=== PATIENT | male | born 1955 | race Caucasian/White ===

== ENCOUNTER 2018-01-21 14:36 | Inpatient (IN) ==
[2018-01-21] MEDS ORDERED: methylPREDNISolone SOD SUC 125 MG/2 ML VIAL IV STA (15:01)
[2018-01-21 15:45] LABS: Basophils # 0.1 10*3/uL (0.0-0.2); Basophils % 0.5 % (0.0-0.8); Eosinophils # 0.3 10*3/uL (0.0-0.87); Eosinophils % 1.9 % (0.00-10.9); Hemoglobin 15.9 GM/DL (14.0-18.0); Immature Granulocytes % 0.8 %; Immature Granulocytes Absolute 0.11 #; Lymphocytes # 1.6 10*3/uL (1.4-4.0); Lymphocytes % 11.8 % (21.2-54.2); Mean Corpuscular HGB Conc 31.2 GM/DL (32-36); Mean Corpuscular Hemoglobin 27 PG (27-34); Mean Corpuscular Volume 85.9 FL (87-102); Mean Platelet Volume 10.8 FL (9.6-12.0); Monocytes # 0.6 10*3/uL (0.11-0.8); Monocytes % 4.8 % (1.7-12.7); Neutrophils # 10.6 10*3/uL (1.4-7.4); Neutrophils % 80.2 % (38.7-73.9); Platelet Count 202 T/CUMM (130-400); Red Blood Count 5.94 MC/CUMM (3.8-5.5); Red Cell Distribution Width 16.7 % (9.3-17.3); White Blood Count 13.2 T/CUMM (4-12)
[2018-01-21 16:04] LABS: INR 4.1
[2018-01-21 16:06] LABS: PT Patient Result 41.4 SECS; Partial Thromboplastin Time 43.3 SECS (0-40)
[2018-01-21 16:27] LABS: Albumin 2.8 G/DL (3.4-5.0); Bilirubin,Total 1.4 MG/DL (0.2-1.0); Calcium 8.7 MG/DL (8.5-10.1); Potassium 4.8 MMOL/L (3.5-5.1); Total Protein 6.4 G/DL (6.4-8.3)
[2018-01-21] MEDS ORDERED: FUROSEMIDE 40 MG/4 ML VIAL IV STA (16:59)
[2018-01-21] MEDS ORDERED: MELATONIN 3 MG TABLET PO PRN (17:54)
[2018-01-21] MEDS ORDERED: DEXTROSE 50% 25 GM/50 ML VIAL IV PRN (18:55)
[2018-01-21] MEDS ORDERED: ONDANSETRON 4 MG/2 ML VIAL IV PRN (18:55)
[2018-01-21] MEDS ORDERED: ACETAMINOPHEN 325 MG TABLET PO PRN (18:55)
[2018-01-21] MEDS ORDERED: GLUCAGON 1 MG VIAL IM PRN (18:55)
[2018-01-21] MEDS ORDERED: MORPHINE 4 MG/1 ML VIAL IV PRN (18:55)
[2018-01-21 20:57] LABS: Apearance,Urine CLEAR (Clear); Bilirubin,Urine Negative (Negative); Blood, Urine Small mg/dL (Negative); Glucose,Urine (UA) >=500 mg/dL (Negative); Ketones,Urine Negative (Negative); Nitrite,Urine Negative (Negative); Protein,Urine Negative; Squamous Epithelial Cell,Urine Occasional /HPF (0-10); Urine Color Yellow (Yellow); Urine Specific Gravity 1.006 (1.001-1.035); Urine Urobilinogen < 2.0 EU/DL (0.2-1.0); WBC,Urine 2 /HPF (0-6)
[2018-01-21] MEDS ORDERED: COLCHICINE 0.6 MG TABLET PO SCH (21:00)
[2018-01-21] MEDS ORDERED: TORSEMIDE 20 MG TABLET PO SCH (21:00)
[2018-01-21] MEDS ORDERED: POTASSIUM CHLORIDE 20 MEQ TABLET PO SCH (21:00)
[2018-01-21] MEDS ORDERED: ATORVASTATIN 40 MG TABLET PO SCH (21:00)
[2018-01-21] MEDS: TAMSULOSIN 0.4 MG CAPSULE PO SCH (21:49)
[2018-01-21] MEDS: ZINC OXIDE PASTE 113 GM TUBE TOP SCH (21:49)
[2018-01-21] MEDS: predniSONE 20 MG TABLET PO SCH (21:49)
[2018-01-21] MEDS: INSULIN LISPRO PROTAMINE/LISPRO 75/25 100 UNIT/ML SUBCUT SCH (21:50)
[2018-01-21] MEDS: INSULIN LISPRO 100 UNIT/ML SUBCUT SCH (21:57)
[2018-01-22] MEDS: LEVOTHYROXINE 112 MCG TABLET PO SCH (06:20)
[2018-01-22 06:38] LABS: Basophils % 0.1 % (0.0-0.8); Hematocrit 41.6 VOL% (42.0-52.0); Hemoglobin 13.1 GM/DL (14.0-18.0); Immature Granulocytes % 0.9 %; Immature Granulocytes Absolute 0.09 #; Lymphocytes # 1.1 10*3/uL (1.4-4.0); Mean Corpuscular HGB Conc 31.5 GM/DL (32-36); Mean Corpuscular Hemoglobin 27 PG (27-34); Mean Corpuscular Volume 84.7 FL (87-102); Monocytes # 0.2 10*3/uL (0.11-0.8); Monocytes % 1.6 % (1.7-12.7); Neutrophils # 8.9 10*3/uL (1.4-7.4); Neutrophils % 86.4 % (38.7-73.9); Platelet Count 173 T/CUMM (130-400); Red Blood Count 4.91 MC/CUMM (3.8-5.5); White Blood Count 10.3 T/CUMM (4-12)
[2018-01-22 06:45] LABS: INR 2.4
[2018-01-22 06:57] LABS: PT Patient Result 24.8 SECS
[2018-01-22 07:04] LABS: Albumin 2.7 G/DL (3.4-5.0); Bilirubin,Total 1.7 MG/DL (0.2-1.0); Calcium 8.9 MG/DL (8.5-10.1); Osmolality,Calculated 288.2 MOS/KG (273-304); Potassium 4.4 MMOL/L (3.5-5.1); Thyroid Stimulating Hormone 2.63 uIU/ml (0.358-3.74); Total Protein 6.3 G/DL (6.4-8.3)
[2018-01-22] MEDS ORDERED: CITALOPRAM 20 MG TABLET PO SCH (09:00)
[2018-01-22] MEDS ORDERED: SODIUM BICARBONATE 650 MG TABLET PO SCH (09:00)
[2018-01-22] MEDS: FEBUXOSTAT 80 MG TABLET PO SCH (09:03)
[2018-01-22] MEDS: predniSONE 20 MG TABLET PO SCH ×2 (09:03→21:30)
[2018-01-22] MEDS: INSULIN LISPRO 100 UNIT/ML SUBCUT SCH ×4 (09:03→21:30)
[2018-01-22] MEDS: PANTOPRAZOLE 40 MG TABLET PO SCH (09:03)
[2018-01-22] MEDS: TAMSULOSIN 0.4 MG CAPSULE PO SCH ×2 (09:03→21:30)
[2018-01-22] MEDS: ZINC OXIDE PASTE 113 GM TUBE TOP SCH ×2 (09:03→21:56)
[2018-01-22] MEDS: INSULIN LISPRO PROTAMINE/LISPRO 75/25 100 UNIT/ML SUBCUT SCH ×2 (09:03→18:21)
[2018-01-22] MEDS ORDERED: diphenhydrAMINE CAP 50 MG CAPSULE PO PRN (11:19)
[2018-01-22] MEDS ORDERED: diphenhydrAMINE CAP 25 MG CAPSULE PO PRN (11:19)
[2018-01-22] MEDS: CLOTRIMAZOLE 1% CREAM 15 GM TUBE TOP SCH (21:56)
[2018-01-23] MEDS: LEVOTHYROXINE 112 MCG TABLET PO SCH (06:02)
[2018-01-23] MEDS: predniSONE 20 MG TABLET PO SCH ×2 (08:09→21:29)
[2018-01-23] MEDS: PANTOPRAZOLE 40 MG TABLET PO SCH (08:09)
[2018-01-23] MEDS: FEBUXOSTAT 80 MG TABLET PO SCH (08:09)
[2018-01-23] MEDS: TAMSULOSIN 0.4 MG CAPSULE PO SCH ×2 (08:09→21:29)
[2018-01-23] MEDS: INSULIN LISPRO PROTAMINE/LISPRO 75/25 100 UNIT/ML SUBCUT SCH ×2 (08:11→18:13)
[2018-01-23] MEDS: INSULIN LISPRO 100 UNIT/ML SUBCUT SCH ×4 (08:11→21:29)
[2018-01-23] MEDS: ZINC OXIDE PASTE 113 GM TUBE TOP SCH ×2 (10:02→21:29)
[2018-01-23] MEDS: CLOTRIMAZOLE 1% CREAM 15 GM TUBE TOP SCH ×2 (15:08→21:29)
[2018-01-24 06:10] LABS: Basophils % 0.1 % (0.0-0.8); Eosinophils % 0.1 % (0.00-10.9); Hematocrit 38.4 VOL% (42.0-52.0); Hemoglobin 12.5 GM/DL (14.0-18.0); Immature Granulocytes % 1.5 %; Immature Granulocytes Absolute 0.13 #; Lymphocytes # 0.9 10*3/uL (1.4-4.0); Lymphocytes % 10.1 % (21.2-54.2); Mean Corpuscular HGB Conc 32.6 GM/DL (32-36); Mean Corpuscular Hemoglobin 28 PG (27-34); Mean Corpuscular Volume 85.1 FL (87-102); Mean Platelet Volume 11.3 FL (9.6-12.0); Monocytes # 0.3 10*3/uL (0.11-0.8); Monocytes % 3.4 % (1.7-12.7); Neutrophils # 7.6 10*3/uL (1.4-7.4); Neutrophils % 84.8 % (38.7-73.9); Platelet Count 148 T/CUMM (130-400); Red Blood Count 4.51 MC/CUMM (3.8-5.5); White Blood Count 8.9 T/CUMM (4-12)
[2018-01-24 06:16] LABS: INR 1.1
[2018-01-24 06:31] LABS: Calcium 8.6 MG/DL (8.5-10.1); Osmolality,Calculated 293.7 MOS/KG (273-304); Potassium 4.2 MMOL/L (3.5-5.1)
[2018-01-24] MEDS: LEVOTHYROXINE 112 MCG TABLET PO SCH (06:31)
[2018-01-24] MEDS: TAMSULOSIN 0.4 MG CAPSULE PO SCH (08:45)
[2018-01-24] MEDS: FEBUXOSTAT 80 MG TABLET PO SCH (08:45)
[2018-01-24] MEDS: predniSONE 20 MG TABLET PO SCH (08:45)
[2018-01-24] MEDS: INSULIN LISPRO PROTAMINE/LISPRO 75/25 100 UNIT/ML SUBCUT SCH (08:47)
[2018-01-24] MEDS: PANTOPRAZOLE 40 MG TABLET PO SCH (08:47)
[2018-01-24] MEDS: ZINC OXIDE PASTE 113 GM TUBE TOP SCH (08:47)
[2018-01-24] MEDS: INSULIN LISPRO 100 UNIT/ML SUBCUT SCH ×2 (08:50→11:52)
[2018-01-24] MEDS: CLOTRIMAZOLE 1% CREAM 15 GM TUBE TOP SCH (11:44)
[2018-01-24 17:46] VITALS: BP 156/99
== END 2018-01-24 16:30 | disposition home health service (06) | DRG 813 ==
LOC: EDBD → EDUNIT# → N.ED 14:36 → SUATTDRO 16:56 → N.EDINP 16:56 → N.3E 17:59
PROVIDERS: ADMIT Internal Medicine; ATTEND Family Medicine

== ENCOUNTER 2018-02-28 16:48 | Inpatient (IN) ==
[2018-02-28] MEDS ORDERED: ASPIRIN 325 MG TABLET PO STA (17:15)
[2018-02-28] MEDS ORDERED: ALBUTEROL/IPRATROPIUM 3 ML NEB RESP TX STA (17:15)
[2018-02-28] MEDS ORDERED: MORPHINE 4 MG/1 ML VIAL IV STA (17:15)
[2018-02-28] MEDS ORDERED: BUMETANIDE 1 MG/4 ML VIAL IV STA (17:15)
[2018-02-28] MEDS ORDERED: ONDANSETRON 4 MG/2 ML VIAL IV STA (17:15)
[2018-02-28 17:29] LABS: Basophils % 0.3 % (0.0-0.8); Eosinophils # 0.2 10*3/uL (0.0-0.87); Eosinophils % 1.5 % (0.00-10.9); Hematocrit 36.8 VOL% (42.0-52.0); Hemoglobin 11.5 GM/DL (14.0-18.0); Immature Granulocytes % 0.6 %; Immature Granulocytes Absolute 0.08 #; Lymphocytes # 1.3 10*3/uL (1.4-4.0); Lymphocytes % 9.3 % (21.2-54.2); Mean Corpuscular HGB Conc 31.3 GM/DL (32-36); Mean Corpuscular Hemoglobin 27 PG (27-34); Mean Corpuscular Volume 85.2 FL (87-102); Mean Platelet Volume 10.5 FL (9.6-12.0); Monocytes # 0.9 10*3/uL (0.11-0.8); Monocytes % 6.4 % (1.7-12.7); Neutrophils # 11.3 10*3/uL (1.4-7.4); Neutrophils % 81.9 % (38.7-73.9); Platelet Count 176 T/CUMM (130-400); Red Blood Count 4.32 MC/CUMM (3.8-5.5); White Blood Count 13.7 T/CUMM (4-12)
[2018-02-28 17:41] LABS: INR 1.1; PT Patient Result 11.8 SECS
[2018-02-28 17:55] LABS: ABG Base Excess 6.7 MMOL/L (-2.5-2.5); ABG HCO3 30.5 MMOL/L (20-26); ABG Oxygen Saturation 93.9 % (95-100); ABG PCO2 49.6 MM HG (35-48); ABG PH 7.423 (7.35-7.45); ABG PO2 74.3 MM HG (80-95); ABG TCO2 28.8 MMOL/L (23-27)
[2018-02-28 17:57] LABS: Alanine Aminotransferase 16 U/L (16-61); Albumin 1.9 G/DL (3.4-5.0); Alkaline Phosphatase 105 U/L (45-117); Aspartate Amino Transferase 6 U/L (0-37); Blood Urea Nitrogen 18 MG/DL (7-18); Calcium 8.5 MG/DL (8.5-10.1); Glucose 157 MG/DL (74-106); Osmolality,Calculated 283.4 MOS/KG (273-304); Potassium 3.2 MMOL/L (3.5-5.1); Sodium 140 MMOL/L (136-145); Total Protein 5.8 G/DL (6.4-8.3)
[2018-02-28] MEDS ORDERED: PIPERACILLIN/TAZOBACTAM 3,375 MG in SODIUM CHLORIDE 0.9% 100 ML IV STA (18:38)
[2018-02-28] MEDS ORDERED: POTASSIUM CHLORIDE 20 MEQ TABLET PO STA (18:38)
[2018-02-28] MEDS ORDERED: ACETAMINOPHEN 325 MG TABLET PO PRN (19:16)
[2018-02-28] MEDS ORDERED: DEXTROSE 50% 25 GM/50 ML VIAL IV PRN (19:16)
[2018-02-28] MEDS ORDERED: GLUCAGON 1 MG VIAL IM PRN (19:16)
[2018-02-28] MEDS ORDERED: MELATONIN 3 MG TABLET PO PRN (19:18)
[2018-02-28] MEDS: POTASSIUM CHLORIDE 20 MEQ TABLET PO SCH (21:22)
[2018-02-28] MEDS: TAMSULOSIN 0.4 MG CAPSULE PO SCH (21:22)
[2018-02-28] MEDS: PANTOPRAZOLE 40 MG TABLET PO SCH (21:22)
[2018-02-28] MEDS: APIXABAN 2.5 MG TABLET PO SCH (21:22)
[2018-02-28] MEDS: CARVEDILOL 12.5 MG TABLET PO SCH (21:22)
[2018-02-28] MEDS: INSULIN REGULAR 100 UNIT/ML SUBCUT SCH (21:26)
[2018-02-28] MEDS: BUMETANIDE 1 MG/4 ML VIAL IV SCH (22:39)
[2018-02-28] MEDS: ZINC OXIDE PASTE 113 GM TUBE TOP SCH (22:40)
[2018-03-01 03:47] LABS: Basophils % 0.3 % (0.0-0.8); Eosinophils # 0.2 10*3/uL (0.0-0.87); Eosinophils % 1.7 % (0.00-10.9); Hematocrit 35.2 VOL% (42.0-52.0); Hemoglobin 11.2 GM/DL (14.0-18.0); Immature Granulocytes % 0.5 %; Immature Granulocytes Absolute 0.06 #; Lymphocytes # 1.3 10*3/uL (1.4-4.0); Lymphocytes % 10.5 % (21.2-54.2); Mean Corpuscular HGB Conc 31.8 GM/DL (32-36); Mean Corpuscular Hemoglobin 27 PG (27-34); Mean Corpuscular Volume 83.4 FL (87-102); Mean Platelet Volume 10.4 FL (9.6-12.0); Monocytes # 0.9 10*3/uL (0.11-0.8); Neutrophils # 9.7 10*3/uL (1.4-7.4); Platelet Count 172 T/CUMM (130-400); Red Blood Count 4.22 MC/CUMM (3.8-5.5); Red Cell Distribution Width 16.1 % (9.3-17.3); White Blood Count 12.1 T/CUMM (4-12)
[2018-03-01] MEDS: PIPERACILLIN/TAZOBACTAM 3,375 MG in SODIUM CHLORIDE 0.9% 100 ML IV SCH ×3 (04:05→18:02)
[2018-03-01 04:32] LABS: Calcium 8.8 MG/DL (8.5-10.1); Potassium 3.6 MMOL/L (3.5-5.1); Risk Ratio 1.8; Thyroid Stimulating Hormone 3.16 uIU/ml (0.358-3.74); VLDL CHOLESTEROL 11.6 MG/DL
[2018-03-01] MEDS: LEVOTHYROXINE 112 MCG TABLET PO SCH ×2 (06:33→09:37)
[2018-03-01] MEDS: INSULIN REGULAR 100 UNIT/ML SUBCUT SCH ×4 (09:26→20:57)
[2018-03-01] MEDS: SODIUM BICARBONATE 650 MG TABLET PO SCH (09:36)
[2018-03-01] MEDS: PANTOPRAZOLE 40 MG TABLET PO SCH ×2 (09:37→20:57)
[2018-03-01] MEDS: TAMSULOSIN 0.4 MG CAPSULE PO SCH ×2 (09:37→20:57)
[2018-03-01] MEDS: ASPIRIN CHEW 81 MG TABLET PO SCH (09:37)
[2018-03-01] MEDS: CITALOPRAM 20 MG TABLET PO SCH (09:37)
[2018-03-01] MEDS: ATORVASTATIN 40 MG TABLET PO SCH (09:37)
[2018-03-01] MEDS: FEBUXOSTAT 80 MG TABLET PO SCH (09:37)
[2018-03-01] MEDS: CARVEDILOL 12.5 MG TABLET PO SCH ×2 (09:38→16:38)
[2018-03-01] MEDS: APIXABAN 2.5 MG TABLET PO SCH ×2 (09:38→20:57)
[2018-03-01] MEDS: POTASSIUM CHLORIDE 20 MEQ TABLET PO SCH ×2 (09:38→20:57)
[2018-03-01] MEDS: ZINC OXIDE PASTE 113 GM TUBE TOP SCH ×2 (09:42→20:57)
[2018-03-01] MEDS: BUMETANIDE 1 MG/4 ML VIAL IV SCH ×2 (09:42→16:35)
[2018-03-01] MEDS: INSULIN LISPRO PROTAMINE/LISPRO 75/25 100 UNIT/ML SUBCUT SCH (09:54)
[2018-03-01 10:02] LABS: Apearance,Urine CLEAR (Clear); Bilirubin,Urine Negative (Negative); Blood, Urine Negative (Negative); Glucose,Urine (UA) 50 mg/dL (Negative); Ketones,Urine Negative (Negative); Mucus,Urine Occasional /LPF (Occasional); Nitrite,Urine Negative (Negative); Protein,Urine Negative; RBC,Urine 1 /HPF (0-4); Squamous Epithelial Cell,Urine Occasional /HPF (0-10); Urine Color Yellow (Yellow); Urine Specific Gravity 1.012 (1.001-1.035); Urine Urobilinogen < 2.0 EU/DL (0.2-1.0)
[2018-03-01] MEDS: guaiFENesin 200 MG/10 ML UDCUP PO PRN (13:57)
[2018-03-01] MEDS: ONDANSETRON 4 MG/2 ML VIAL IV PRN (23:45)
[2018-03-02] MEDS: PIPERACILLIN/TAZOBACTAM 3,375 MG in SODIUM CHLORIDE 0.9% 100 ML IV SCH ×3 (04:10→18:35)
[2018-03-02 05:55] LABS: Basophils % 0.3 % (0.0-0.8); Eosinophils # 0.1 10*3/uL (0.0-0.87); Eosinophils % 1.1 % (0.00-10.9); Hematocrit 36.2 VOL% (42.0-52.0); Immature Granulocytes % 0.5 %; Immature Granulocytes Absolute 0.06 #; Lymphocytes # 1.1 10*3/uL (1.4-4.0); Lymphocytes % 9.7 % (21.2-54.2); Mean Corpuscular HGB Conc 30.4 GM/DL (32-36); Mean Corpuscular Hemoglobin 26 PG (27-34); Mean Corpuscular Volume 86.4 FL (87-102); Mean Platelet Volume 10.7 FL (9.6-12.0); Monocytes # 0.9 10*3/uL (0.11-0.8); Neutrophils # 9.3 10*3/uL (1.4-7.4); Neutrophils % 80.4 % (38.7-73.9); Platelet Count 168 T/CUMM (130-400); Red Blood Count 4.19 MC/CUMM (3.8-5.5); Red Cell Distribution Width 16.1 % (9.3-17.3); White Blood Count 11.6 T/CUMM (4-12)
[2018-03-02] MEDS: LEVOTHYROXINE 112 MCG TABLET PO SCH (06:11)
[2018-03-02 07:07] LABS: Calcium 8.7 MG/DL (8.5-10.1); Osmolality,Calculated 283.5 MOS/KG (273-304); Potassium 3.8 MMOL/L (3.5-5.1)
[2018-03-02] MEDS: FEBUXOSTAT 80 MG TABLET PO SCH (09:12)
[2018-03-02] MEDS: TAMSULOSIN 0.4 MG CAPSULE PO SCH ×2 (09:12→21:32)
[2018-03-02] MEDS: APIXABAN 2.5 MG TABLET PO SCH ×2 (09:13→21:33)
[2018-03-02] MEDS: CARVEDILOL 12.5 MG TABLET PO SCH ×2 (09:13→16:20)
[2018-03-02] MEDS: ASPIRIN CHEW 81 MG TABLET PO SCH (09:13)
[2018-03-02] MEDS: CITALOPRAM 20 MG TABLET PO SCH (09:14)
[2018-03-02] MEDS: PANTOPRAZOLE 40 MG TABLET PO SCH ×2 (09:14→21:33)
[2018-03-02] MEDS: POTASSIUM CHLORIDE 20 MEQ TABLET PO SCH ×2 (09:14→21:33)
[2018-03-02] MEDS: ATORVASTATIN 40 MG TABLET PO SCH (09:14)
[2018-03-02] MEDS: SODIUM BICARBONATE 650 MG TABLET PO SCH (09:14)
[2018-03-02] MEDS: INSULIN LISPRO PROTAMINE/LISPRO 75/25 100 UNIT/ML SUBCUT SCH (09:15)
[2018-03-02] MEDS: BUMETANIDE 1 MG/4 ML VIAL IV SCH ×2 (09:15→16:29)
[2018-03-02] MEDS: ZINC OXIDE PASTE 113 GM TUBE TOP SCH ×2 (09:18→21:40)
[2018-03-02] MEDS: INSULIN REGULAR 100 UNIT/ML SUBCUT SCH ×4 (09:18→21:30)
[2018-03-02] MEDS: MAGNESIUM HYDROXIDE SUSP 30 ML UDCUP PO PRN (21:35)
[2018-03-03] MEDS: PIPERACILLIN/TAZOBACTAM 3,375 MG in SODIUM CHLORIDE 0.9% 100 ML IV SCH ×3 (03:20→19:59)
[2018-03-03 06:12] LABS: Calcium 8.6 MG/DL (8.5-10.1); Osmolality,Calculated 280.7 MOS/KG (273-304); Potassium 4.1 MMOL/L (3.5-5.1)
[2018-03-03] MEDS: LEVOTHYROXINE 112 MCG TABLET PO SCH (06:33)
[2018-03-03] MEDS: INSULIN REGULAR 100 UNIT/ML SUBCUT SCH ×4 (08:33→20:54)
[2018-03-03] MEDS: INSULIN LISPRO PROTAMINE/LISPRO 75/25 100 UNIT/ML SUBCUT SCH (08:35)
[2018-03-03] MEDS: APIXABAN 2.5 MG TABLET PO SCH ×2 (08:35→20:58)
[2018-03-03] MEDS: PANTOPRAZOLE 40 MG TABLET PO SCH ×2 (08:35→20:57)
[2018-03-03] MEDS: POTASSIUM CHLORIDE 20 MEQ TABLET PO SCH ×2 (08:35→20:57)
[2018-03-03] MEDS: FEBUXOSTAT 80 MG TABLET PO SCH (08:36)
[2018-03-03] MEDS: TAMSULOSIN 0.4 MG CAPSULE PO SCH ×2 (08:36→20:58)
[2018-03-03] MEDS: CITALOPRAM 20 MG TABLET PO SCH (08:36)
[2018-03-03] MEDS: ASPIRIN CHEW 81 MG TABLET PO SCH (08:36)
[2018-03-03] MEDS: CARVEDILOL 12.5 MG TABLET PO SCH ×2 (08:36→16:48)
[2018-03-03] MEDS: ATORVASTATIN 40 MG TABLET PO SCH (08:36)
[2018-03-03] MEDS: SODIUM BICARBONATE 650 MG TABLET PO SCH (08:36)
[2018-03-03] MEDS ORDERED: BISACODYL 5 MG TABLET PO ONE (08:38)
[2018-03-03] MEDS: ZINC OXIDE PASTE 113 GM TUBE TOP SCH ×2 (08:41→22:32)
[2018-03-03] MEDS: BUMETANIDE 1 MG/4 ML VIAL IV SCH ×2 (08:41→16:47)
[2018-03-03] MEDS: POLYETHYLENE GLYCOL POWDER 17 GM PACK PO SCH (09:06)
[2018-03-03] MEDS: MAGNESIUM HYDROXIDE SUSP 30 ML UDCUP PO PRN (20:56)
[2018-03-04] MEDS: PIPERACILLIN/TAZOBACTAM 3,375 MG in SODIUM CHLORIDE 0.9% 100 ML IV SCH ×3 (03:05→19:13)
[2018-03-04 05:42] LABS: Osmolality,Calculated 284.5 MOS/KG (273-304); Potassium 4.2 MMOL/L (3.5-5.1)
[2018-03-04] MEDS: LEVOTHYROXINE 112 MCG TABLET PO SCH (06:41)
[2018-03-04] MEDS: INSULIN LISPRO PROTAMINE/LISPRO 75/25 100 UNIT/ML SUBCUT SCH (08:23)
[2018-03-04] MEDS: INSULIN REGULAR 100 UNIT/ML SUBCUT SCH ×4 (08:24→20:50)
[2018-03-04] MEDS: CITALOPRAM 20 MG TABLET PO SCH (08:24)
[2018-03-04] MEDS: POLYETHYLENE GLYCOL POWDER 17 GM PACK PO SCH (08:24)
[2018-03-04] MEDS: PANTOPRAZOLE 40 MG TABLET PO SCH ×2 (08:25→20:52)
[2018-03-04] MEDS: FEBUXOSTAT 80 MG TABLET PO SCH (08:25)
[2018-03-04] MEDS: APIXABAN 2.5 MG TABLET PO SCH ×2 (08:25→20:52)
[2018-03-04] MEDS: TAMSULOSIN 0.4 MG CAPSULE PO SCH ×2 (08:25→20:51)
[2018-03-04] MEDS: CARVEDILOL 12.5 MG TABLET PO SCH ×2 (08:25→17:13)
[2018-03-04] MEDS: POTASSIUM CHLORIDE 20 MEQ TABLET PO SCH ×2 (08:25→20:51)
[2018-03-04] MEDS: SODIUM BICARBONATE 650 MG TABLET PO SCH (08:25)
[2018-03-04] MEDS: ASPIRIN CHEW 81 MG TABLET PO SCH (08:25)
[2018-03-04] MEDS: ATORVASTATIN 40 MG TABLET PO SCH (08:25)
[2018-03-04] MEDS: ZINC OXIDE PASTE 113 GM TUBE TOP SCH ×2 (08:26→20:53)
[2018-03-04] MEDS: BUMETANIDE 1 MG/4 ML VIAL IV SCH ×2 (08:30→16:34)
[2018-03-04] MEDS ORDERED: INSULIN GLARGINE 100 UNIT/ML SUBCUT SCH (10:00)
[2018-03-04] MEDS: INSULIN LISPRO 100 UNIT/ML SUBCUT SCH ×2 (11:45→17:13)
[2018-03-05] MEDS: PIPERACILLIN/TAZOBACTAM 3,375 MG in SODIUM CHLORIDE 0.9% 100 ML IV SCH ×3 (03:32→18:38)
[2018-03-05 04:46] LABS: Calcium 8.8 MG/DL (8.5-10.1); Osmolality,Calculated 284.4 MOS/KG (273-304); Potassium 4.2 MMOL/L (3.5-5.1)
[2018-03-05] MEDS: LEVOTHYROXINE 112 MCG TABLET PO SCH (06:00)
[2018-03-05] MEDS ORDERED: CLINDAMYCIN INJ 900 MG in PREMIX 1 EACH IV ONE (07:30)
[2018-03-05] MEDS: ONDANSETRON 4 MG/2 ML VIAL IV PRN (08:48)
[2018-03-05] MEDS: INSULIN REGULAR 100 UNIT/ML SUBCUT SCH ×4 (08:56→21:11)
[2018-03-05] MEDS ORDERED: BUMETANIDE 1 MG/4 ML VIAL IV ONE (09:55)
[2018-03-05] MEDS: BUMETANIDE 1 MG/4 ML VIAL IV SCH ×3 (09:56→21:11)
[2018-03-05] MEDS: ATORVASTATIN 40 MG TABLET PO SCH (10:01)
[2018-03-05] MEDS: TAMSULOSIN 0.4 MG CAPSULE PO SCH ×2 (10:01→21:12)
[2018-03-05] MEDS: FEBUXOSTAT 80 MG TABLET PO SCH (10:01)
[2018-03-05] MEDS: POTASSIUM CHLORIDE 20 MEQ TABLET PO SCH ×2 (10:02→21:12)
[2018-03-05] MEDS: CITALOPRAM 20 MG TABLET PO SCH (10:02)
[2018-03-05] MEDS: PANTOPRAZOLE 40 MG TABLET PO SCH ×2 (10:02→21:12)
[2018-03-05] MEDS: SODIUM BICARBONATE 650 MG TABLET PO SCH (10:02)
[2018-03-05] MEDS: CARVEDILOL 12.5 MG TABLET PO SCH ×2 (10:02→17:05)
[2018-03-05] MEDS: ASPIRIN CHEW 81 MG TABLET PO SCH (10:02)
[2018-03-05] MEDS: INSULIN LISPRO PROTAMINE/LISPRO 75/25 100 UNIT/ML SUBCUT SCH (10:03)
[2018-03-05] MEDS: INSULIN LISPRO 100 UNIT/ML SUBCUT SCH ×3 (10:03→17:05)
[2018-03-05] MEDS: ZINC OXIDE PASTE 113 GM TUBE TOP SCH ×2 (11:20→21:17)
[2018-03-05] MEDS ORDERED: LIDOCAINE 1% 20 ML VIAL ONE (12:50)
[2018-03-05] MEDS: LACTATED RINGERS 1,000 ML IV SCH (13:23)
[2018-03-05] MEDS: APIXABAN 2.5 MG TABLET PO SCH ×2 (13:28→21:12)
[2018-03-05] MEDS: POLYETHYLENE GLYCOL POWDER 17 GM PACK PO SCH (13:28)
[2018-03-05] MEDS ORDERED: MIDAZOLAM 2 MG/2 ML VIAL ONE ×2 (14:41)
[2018-03-05] MEDS ORDERED: PROPOFOL 200 MG/20 ML VIAL IV ONE (14:42)
[2018-03-05] MEDS ORDERED: fentaNYL 100 MCG/2 ML VIAL ONE (14:42)
[2018-03-05] MEDS ORDERED: ONDANSETRON 4 MG/2 ML VIAL ONE (14:42)
[2018-03-06] MEDS: PIPERACILLIN/TAZOBACTAM 3,375 MG in SODIUM CHLORIDE 0.9% 100 ML IV SCH ×3 (02:47→18:20)
[2018-03-06 05:21] LABS: Basophils # 0.1 10*3/uL (0.0-0.2); Basophils % 0.5 % (0.0-0.8); Eosinophils # 0.2 10*3/uL (0.0-0.87); Eosinophils % 1.8 % (0.00-10.9); Hemoglobin 10.2 GM/DL (14.0-18.0); Immature Granulocytes % 0.6 %; Immature Granulocytes Absolute 0.06 #; Lymphocytes # 1.1 10*3/uL (1.4-4.0); Lymphocytes % 11.7 % (21.2-54.2); Mean Corpuscular HGB Conc 30.9 GM/DL (32-36); Mean Corpuscular Hemoglobin 26 PG (27-34); Mean Corpuscular Volume 84.6 FL (87-102); Mean Platelet Volume 10.6 FL (9.6-12.0); Monocytes # 0.8 10*3/uL (0.11-0.8); Monocytes % 8.3 % (1.7-12.7); Neutrophils # 7.5 10*3/uL (1.4-7.4); Neutrophils % 77.1 % (38.7-73.9); Platelet Count 204 T/CUMM (130-400); Red Cell Distribution Width 15.9 % (9.3-17.3); White Blood Count 9.7 T/CUMM (4-12)
[2018-03-06 05:33] LABS: Calcium 8.3 MG/DL (8.5-10.1); Osmolality,Calculated 285.4 MOS/KG (273-304); Potassium 4.2 MMOL/L (3.5-5.1)
[2018-03-06] MEDS: LEVOTHYROXINE 112 MCG TABLET PO SCH (06:05)
[2018-03-06] MEDS: INSULIN REGULAR 100 UNIT/ML SUBCUT SCH ×4 (08:24→20:55)
[2018-03-06] MEDS: INSULIN LISPRO PROTAMINE/LISPRO 75/25 100 UNIT/ML SUBCUT SCH (08:45)
[2018-03-06] MEDS: POLYETHYLENE GLYCOL POWDER 17 GM PACK PO SCH (08:45)
[2018-03-06] MEDS: INSULIN LISPRO 100 UNIT/ML SUBCUT SCH ×3 (08:45→17:52)
[2018-03-06] MEDS: BUMETANIDE 1 MG/4 ML VIAL IV SCH ×3 (08:46→20:54)
[2018-03-06] MEDS: CITALOPRAM 20 MG TABLET PO SCH (08:46)
[2018-03-06] MEDS: ASPIRIN CHEW 81 MG TABLET PO SCH (08:46)
[2018-03-06] MEDS: PANTOPRAZOLE 40 MG TABLET PO SCH ×2 (08:46→20:54)
[2018-03-06] MEDS: TAMSULOSIN 0.4 MG CAPSULE PO SCH ×2 (08:46→20:54)
[2018-03-06] MEDS: FEBUXOSTAT 80 MG TABLET PO SCH (08:46)
[2018-03-06] MEDS: ATORVASTATIN 40 MG TABLET PO SCH (08:47)
[2018-03-06] MEDS: ZINC OXIDE PASTE 113 GM TUBE TOP SCH ×2 (08:47→20:55)
[2018-03-06] MEDS: POTASSIUM CHLORIDE 20 MEQ TABLET PO SCH ×2 (08:47→20:54)
[2018-03-06] MEDS: CARVEDILOL 12.5 MG TABLET PO SCH ×2 (08:47→17:53)
[2018-03-06] MEDS: SODIUM BICARBONATE 650 MG TABLET PO SCH (08:47)
[2018-03-06] MEDS: APIXABAN 2.5 MG TABLET PO SCH ×2 (08:50→20:54)
[2018-03-06] MEDS: LACTATED RINGERS 1,000 ML IV SCH (14:33)
[2018-03-07] MEDS: guaiFENesin 200 MG/10 ML UDCUP PO PRN ×2 (00:03→10:20)
[2018-03-07] MEDS: PIPERACILLIN/TAZOBACTAM 3,375 MG in SODIUM CHLORIDE 0.9% 100 ML IV SCH ×2 (03:55→11:31)
[2018-03-07 04:52] LABS: Basophils # 0.1 10*3/uL (0.0-0.2); Basophils % 0.5 % (0.0-0.8); Eosinophils # 0.2 10*3/uL (0.0-0.87); Eosinophils % 1.4 % (0.00-10.9); Immature Granulocytes % 1.1 %; Immature Granulocytes Absolute 0.12 #; Lymphocytes # 1.1 10*3/uL (1.4-4.0); Lymphocytes % 10.1 % (21.2-54.2); Mean Corpuscular HGB Conc 30.3 GM/DL (32-36); Mean Corpuscular Hemoglobin 26 PG (27-34); Mean Corpuscular Volume 86.4 FL (87-102); Mean Platelet Volume 10.3 FL (9.6-12.0); Monocytes # 0.7 10*3/uL (0.11-0.8); Monocytes % 6.2 % (1.7-12.7); Neutrophils # 9.1 10*3/uL (1.4-7.4); Neutrophils % 80.7 % (38.7-73.9); Platelet Count 191 T/CUMM (130-400); Red Blood Count 3.82 MC/CUMM (3.8-5.5); Red Cell Distribution Width 15.9 % (9.3-17.3); White Blood Count 11.3 T/CUMM (4-12)
[2018-03-07 05:09] LABS: Calcium 8.7 MG/DL (8.5-10.1); Osmolality,Calculated 286.4 MOS/KG (273-304); Potassium 4.2 MMOL/L (3.5-5.1)
[2018-03-07] MEDS: LEVOTHYROXINE 112 MCG TABLET PO SCH (06:00)
[2018-03-07] MEDS: FEBUXOSTAT 80 MG TABLET PO SCH (10:19)
[2018-03-07] MEDS: POTASSIUM CHLORIDE 20 MEQ TABLET PO SCH (10:19)
[2018-03-07] MEDS: ASPIRIN CHEW 81 MG TABLET PO SCH (10:19)
[2018-03-07] MEDS: PANTOPRAZOLE 40 MG TABLET PO SCH (10:19)
[2018-03-07] MEDS: SODIUM BICARBONATE 650 MG TABLET PO SCH (10:19)
[2018-03-07] MEDS: CITALOPRAM 20 MG TABLET PO SCH (10:19)
[2018-03-07] MEDS: APIXABAN 2.5 MG TABLET PO SCH (10:20)
[2018-03-07] MEDS: ZINC OXIDE PASTE 113 GM TUBE TOP SCH (10:20)
[2018-03-07] MEDS: INSULIN LISPRO 100 UNIT/ML SUBCUT SCH ×2 (10:20→12:00)
[2018-03-07] MEDS: TAMSULOSIN 0.4 MG CAPSULE PO SCH (10:20)
[2018-03-07] MEDS: CARVEDILOL 12.5 MG TABLET PO SCH (10:20)
[2018-03-07] MEDS: ATORVASTATIN 40 MG TABLET PO SCH (10:20)
[2018-03-07] MEDS: INSULIN REGULAR 100 UNIT/ML SUBCUT SCH ×2 (10:22→12:00)
[2018-03-07] MEDS: INSULIN LISPRO PROTAMINE/LISPRO 75/25 100 UNIT/ML SUBCUT SCH (10:22)
[2018-03-07] MEDS: POLYETHYLENE GLYCOL POWDER 17 GM PACK PO SCH (10:23)
[2018-03-07] MEDS: BUMETANIDE 1 MG/4 ML VIAL IV SCH (10:43)
[2018-03-07 12:13] VITALS: BP 134/79
[2018-03-07] MEDS: LACTATED RINGERS 1,000 ML IV SCH (13:38)
== END 2018-03-07 13:00 | DRG 255 ==
LOC: EDUNIT# → EDBD → N.ED 16:48 → N.EDINP 19:16 → SUATTDRO 19:17 → N.EDINP 20:08 → N.TELES 20:15
PROVIDERS: ADMIT Internal Medicine; ATTEND Internal Medicine

== ENCOUNTER 2018-07-27 14:13 | Inpatient (IN) ==
[2018-07-27] MEDS ORDERED: BUMETANIDE 1 MG/4 ML VIAL IV STA (14:36)
[2018-07-27 15:10] LABS: Basophils % 0.4 % (0.0-0.8); Eosinophils # 0.3 10*3/uL (0.0-0.87); Eosinophils % 3.6 % (0.00-10.9); Hematocrit 38.1 VOL% (42.0-52.0); Hemoglobin 11.8 GM/DL (14.0-18.0); Immature Granulocytes % 0.6 %; Immature Granulocytes Absolute 0.06 #; Lymphocytes # 1.7 10*3/uL (1.4-4.0); Lymphocytes % 17.4 % (21.2-54.2); Mean Corpuscular Hemoglobin 27 PG (27-34); Mean Platelet Volume 10.9 FL (9.6-12.0); Monocytes # 0.7 10*3/uL (0.11-0.8); Monocytes % 7.7 % (1.7-12.7); Neutrophils # 6.7 10*3/uL (1.4-7.4); Neutrophils % 70.3 % (38.7-73.9); Platelet Count 180 T/CUMM (130-400); Red Blood Count 4.38 MC/CUMM (3.8-5.5); Red Cell Distribution Width 15.3 % (9.3-17.3); White Blood Count 9.5 T/CUMM (4-12)
[2018-07-27 15:39] LABS: Albumin 2.9 G/DL (3.4-5.0); Bilirubin,Total 1.8 MG/DL (0.2-1.0); Calcium 8.7 MG/DL (8.5-10.1); Potassium 3.7 MMOL/L (3.5-5.1); Total Protein 6.3 G/DL (6.4-8.3)
[2018-07-27] MEDS ORDERED: GLUCAGON 1 MG VIAL IM PRN (17:49)
[2018-07-27] MEDS ORDERED: DEXTROSE 50% 25 GM/50 ML SYRINGE IV PRN (17:49)
[2018-07-27] MEDS ORDERED: ENOXAPARIN 40 MG/0.4 ML SYRINGE SUBCUT SCH (18:00)
[2018-07-27] MEDS: PANTOPRAZOLE 40 MG TABLET PO SCH (21:25)
[2018-07-27] MEDS: TAMSULOSIN 0.4 MG CAPSULE PO SCH (21:25)
[2018-07-27] MEDS: MAGNESIUM CHLORIDE 64 MG TABLET PO SCH (21:26)
[2018-07-27] MEDS: CARVEDILOL 12.5 MG TABLET PO SCH (21:26)
[2018-07-27] MEDS: INSULIN LISPRO 100 UNIT/ML SUBCUT SCH (21:27)
[2018-07-27] MEDS: INSULIN LISPRO PROTAMINE/LISPRO 75/25 100 UNIT/ML SUBCUT SCH (22:08)
[2018-07-28 03:28] LABS: Basophils % 0.5 % (0.0-0.8); Eosinophils # 0.3 10*3/uL (0.0-0.87); Eosinophils % 3.9 % (0.00-10.9); Hematocrit 36.7 VOL% (42.0-52.0); Hemoglobin 11.2 GM/DL (14.0-18.0); Immature Granulocytes % 0.5 %; Immature Granulocytes Absolute 0.04 #; Lymphocytes # 1.7 10*3/uL (1.4-4.0); Lymphocytes % 22.1 % (21.2-54.2); Mean Corpuscular HGB Conc 30.5 GM/DL (32-36); Mean Corpuscular Hemoglobin 27 PG (27-34); Mean Corpuscular Volume 87.8 FL (87-102); Mean Platelet Volume 11.5 FL (9.6-12.0); Monocytes # 0.6 10*3/uL (0.11-0.8); Monocytes % 7.8 % (1.7-12.7); Neutrophils % 65.2 % (38.7-73.9); Platelet Count 156 T/CUMM (130-400); Red Blood Count 4.18 MC/CUMM (3.8-5.5); Red Cell Distribution Width 15.2 % (9.3-17.3); White Blood Count 7.7 T/CUMM (4-12)
[2018-07-28 03:39] LABS: Calcium 8.4 MG/DL (8.5-10.1); Osmolality,Calculated 292.1 MOS/KG (273-304); Potassium 3.5 MMOL/L (3.5-5.1)
[2018-07-28] MEDS ORDERED: ALBUTEROL 2.5 MG/3 ML NEB RESP TX PRN (04:29)
[2018-07-28] MEDS ORDERED: LEVOTHYROXINE 112 MCG TABLET PO SCH (06:30)
[2018-07-28] MEDS: TAMSULOSIN 0.4 MG CAPSULE PO SCH ×2 (09:19→21:35)
[2018-07-28] MEDS: PANTOPRAZOLE 40 MG TABLET PO SCH ×2 (09:19→21:34)
[2018-07-28] MEDS: MAGNESIUM CHLORIDE 64 MG TABLET PO SCH ×2 (09:19→21:34)
[2018-07-28] MEDS: CITALOPRAM 20 MG TABLET PO SCH (09:19)
[2018-07-28] MEDS: CARVEDILOL 12.5 MG TABLET PO SCH ×2 (09:20→21:34)
[2018-07-28] MEDS: POLYETHYLENE GLYCOL POWDER 17 GM PACK PO SCH (09:20)
[2018-07-28] MEDS: SODIUM BICARBONATE 650 MG TABLET PO SCH (09:20)
[2018-07-28] MEDS: FEBUXOSTAT 80 MG TABLET PO SCH (09:20)
[2018-07-28] MEDS: ATORVASTATIN 40 MG TABLET PO SCH (09:20)
[2018-07-28] MEDS: INSULIN LISPRO 100 UNIT/ML SUBCUT SCH ×4 (09:47→21:35)
[2018-07-28] MEDS ORDERED: MAGNESIUM SULF RIDER 2 GM in PREMIX 1 EACH IV ONE (11:00)
[2018-07-28] MEDS: BUMETANIDE 1 MG/4 ML VIAL IV SCH ×2 (12:28→21:36)
[2018-07-28] MEDS: APIXABAN 5 MG TABLET PO SCH ×2 (12:36→21:35)
[2018-07-28] MEDS: INSULIN LISPRO PROTAMINE/LISPRO 75/25 100 UNIT/ML SUBCUT SCH ×2 (12:41→21:36)
[2018-07-29] MEDS ORDERED: diphenhydrAMINE CAP 25 MG CAPSULE PO ONE (00:40)
[2018-07-29] MEDS: LEVOTHYROXINE 125 MCG TABLET PO SCH (05:56)
[2018-07-29 06:58] LABS: Basophils # 0.1 10*3/uL (0.0-0.2); Basophils % 0.5 % (0.0-0.8); Eosinophils # 0.4 10*3/uL (0.0-0.87); Eosinophils % 4.8 % (0.00-10.9); Hematocrit 38.2 VOL% (42.0-52.0); Hemoglobin 11.9 GM/DL (14.0-18.0); Immature Granulocytes % 0.4 %; Immature Granulocytes Absolute 0.04 #; Lymphocytes # 1.4 10*3/uL (1.4-4.0); Mean Corpuscular HGB Conc 31.2 GM/DL (32-36); Mean Corpuscular Hemoglobin 27 PG (27-34); Monocytes # 0.7 10*3/uL (0.11-0.8); Monocytes % 7.7 % (1.7-12.7); Neutrophils # 6.6 10*3/uL (1.4-7.4); Neutrophils % 71.6 % (38.7-73.9); Platelet Count 154 T/CUMM (130-400); Red Blood Count 4.44 MC/CUMM (3.8-5.5); Red Cell Distribution Width 14.9 % (9.3-17.3); White Blood Count 9.2 T/CUMM (4-12)
[2018-07-29 07:11] LABS: Calcium 8.5 MG/DL (8.5-10.1); Osmolality,Calculated 287.3 MOS/KG (273-304); Potassium 3.5 MMOL/L (3.5-5.1)
[2018-07-29] MEDS: INSULIN LISPRO 100 UNIT/ML SUBCUT SCH ×4 (07:15→21:52)
[2018-07-29] MEDS: POLYETHYLENE GLYCOL POWDER 17 GM PACK PO SCH (09:28)
[2018-07-29] MEDS: SODIUM BICARBONATE 650 MG TABLET PO SCH (09:29)
[2018-07-29] MEDS: PANTOPRAZOLE 40 MG TABLET PO SCH ×2 (09:30→21:51)
[2018-07-29] MEDS: ASPIRIN CHEW 81 MG TABLET PO SCH (09:30)
[2018-07-29] MEDS: CARVEDILOL 12.5 MG TABLET PO SCH ×2 (09:30→21:51)
[2018-07-29] MEDS: MAGNESIUM CHLORIDE 64 MG TABLET PO SCH ×2 (09:30→21:51)
[2018-07-29] MEDS: TAMSULOSIN 0.4 MG CAPSULE PO SCH ×2 (09:31→21:51)
[2018-07-29] MEDS: CITALOPRAM 20 MG TABLET PO SCH (09:33)
[2018-07-29] MEDS: APIXABAN 5 MG TABLET PO SCH ×2 (09:33→21:51)
[2018-07-29] MEDS: ATORVASTATIN 40 MG TABLET PO SCH (09:33)
[2018-07-29] MEDS: FEBUXOSTAT 80 MG TABLET PO SCH (09:34)
[2018-07-29] MEDS: INSULIN LISPRO PROTAMINE/LISPRO 75/25 100 UNIT/ML SUBCUT SCH ×2 (09:49→21:51)
[2018-07-29] MEDS: BUMETANIDE 1 MG/4 ML VIAL IV SCH ×2 (09:56→21:52)
[2018-07-30 05:33] LABS: Basophils % 0.5 % (0.0-0.8); Eosinophils # 0.6 10*3/uL (0.0-0.87); Eosinophils % 6.6 % (0.00-10.9); Hematocrit 35.5 VOL% (42.0-52.0); Hemoglobin 10.8 GM/DL (14.0-18.0); Immature Granulocytes % 0.5 %; Immature Granulocytes Absolute 0.04 #; Lymphocytes # 1.2 10*3/uL (1.4-4.0); Lymphocytes % 13.9 % (21.2-54.2); Mean Corpuscular HGB Conc 30.4 GM/DL (32-36); Mean Corpuscular Hemoglobin 27 PG (27-34); Mean Platelet Volume 11.4 FL (9.6-12.0); Monocytes # 0.7 10*3/uL (0.11-0.8); Monocytes % 7.8 % (1.7-12.7); Neutrophils # 6.3 10*3/uL (1.4-7.4); Neutrophils % 70.7 % (38.7-73.9); Platelet Count 153 T/CUMM (130-400); Red Blood Count 4.08 MC/CUMM (3.8-5.5); Red Cell Distribution Width 14.8 % (9.3-17.3); White Blood Count 8.9 T/CUMM (4-12)
[2018-07-30] MEDS: LEVOTHYROXINE 125 MCG TABLET PO SCH (05:37)
[2018-07-30 05:43] LABS: Calcium 8.4 MG/DL (8.5-10.1); Osmolality,Calculated 287.3 MOS/KG (273-304); Potassium 3.3 MMOL/L (3.5-5.1)
[2018-07-30] MEDS: INSULIN LISPRO 100 UNIT/ML SUBCUT SCH ×4 (08:15→21:21)
[2018-07-30] MEDS: BUMETANIDE 1 MG/4 ML VIAL IV SCH ×2 (09:52→22:15)
[2018-07-30] MEDS: INSULIN LISPRO PROTAMINE/LISPRO 75/25 100 UNIT/ML SUBCUT SCH ×2 (09:52→22:32)
[2018-07-30] MEDS: CITALOPRAM 20 MG TABLET PO SCH (09:52)
[2018-07-30] MEDS: APIXABAN 5 MG TABLET PO SCH ×2 (09:52→22:14)
[2018-07-30] MEDS: ATORVASTATIN 40 MG TABLET PO SCH (09:52)
[2018-07-30] MEDS: TAMSULOSIN 0.4 MG CAPSULE PO SCH ×2 (09:52→22:14)
[2018-07-30] MEDS: CARVEDILOL 12.5 MG TABLET PO SCH ×2 (09:52→22:14)
[2018-07-30] MEDS: POLYETHYLENE GLYCOL POWDER 17 GM PACK PO SCH (09:52)
[2018-07-30] MEDS: FEBUXOSTAT 80 MG TABLET PO SCH (09:53)
[2018-07-30] MEDS: PANTOPRAZOLE 40 MG TABLET PO SCH ×2 (09:53→22:14)
[2018-07-30] MEDS: MAGNESIUM CHLORIDE 64 MG TABLET PO SCH ×2 (09:53→22:13)
[2018-07-30] MEDS: SODIUM BICARBONATE 650 MG TABLET PO SCH (09:53)
[2018-07-31 05:20] LABS: Basophils % 0.5 % (0.0-0.8); Eosinophils # 0.6 10*3/uL (0.0-0.87); Eosinophils % 7.1 % (0.00-10.9); Hematocrit 36.6 VOL% (42.0-52.0); Hemoglobin 11.2 GM/DL (14.0-18.0); Immature Granulocytes % 0.6 %; Immature Granulocytes Absolute 0.05 #; Lymphocytes # 1.2 10*3/uL (1.4-4.0); Lymphocytes % 14.2 % (21.2-54.2); Mean Corpuscular HGB Conc 30.6 GM/DL (32-36); Mean Corpuscular Hemoglobin 27 PG (27-34); Mean Corpuscular Volume 88.4 FL (87-102); Monocytes # 0.7 10*3/uL (0.11-0.8); Monocytes % 8.4 % (1.7-12.7); Neutrophils # 6.1 10*3/uL (1.4-7.4); Neutrophils % 69.2 % (38.7-73.9); Platelet Count 139 T/CUMM (130-400); Red Blood Count 4.14 MC/CUMM (3.8-5.5); Red Cell Distribution Width 14.7 % (9.3-17.3); White Blood Count 8.8 T/CUMM (4-12)
[2018-07-31 05:37] LABS: Calcium 8.9 MG/DL (8.5-10.1); Osmolality,Calculated 286.3 MOS/KG (273-304); Potassium 3.5 MMOL/L (3.5-5.1)
[2018-07-31] MEDS: LEVOTHYROXINE 125 MCG TABLET PO SCH (06:07)
[2018-07-31] MEDS: INSULIN LISPRO 100 UNIT/ML SUBCUT SCH ×4 (08:42→20:40)
[2018-07-31] MEDS: POLYETHYLENE GLYCOL POWDER 17 GM PACK PO SCH (09:38)
[2018-07-31] MEDS: BUMETANIDE 1 MG/4 ML VIAL IV SCH ×2 (09:38→21:21)
[2018-07-31] MEDS: FEBUXOSTAT 80 MG TABLET PO SCH (09:39)
[2018-07-31] MEDS: CITALOPRAM 20 MG TABLET PO SCH (09:39)
[2018-07-31] MEDS: TAMSULOSIN 0.4 MG CAPSULE PO SCH ×2 (09:39→21:17)
[2018-07-31] MEDS: ASPIRIN CHEW 81 MG TABLET PO SCH (09:39)
[2018-07-31] MEDS: PANTOPRAZOLE 40 MG TABLET PO SCH ×2 (09:40→21:17)
[2018-07-31] MEDS: CARVEDILOL 12.5 MG TABLET PO SCH ×2 (09:40→21:18)
[2018-07-31] MEDS: APIXABAN 5 MG TABLET PO SCH ×2 (09:40→21:17)
[2018-07-31] MEDS: ATORVASTATIN 40 MG TABLET PO SCH (09:40)
[2018-07-31] MEDS: SODIUM BICARBONATE 650 MG TABLET PO SCH (09:40)
[2018-07-31] MEDS: MAGNESIUM CHLORIDE 64 MG TABLET PO SCH ×2 (09:40→21:17)
[2018-07-31] MEDS: INSULIN LISPRO PROTAMINE/LISPRO 75/25 100 UNIT/ML SUBCUT SCH ×2 (10:00→20:43)
[2018-07-31] MEDS: diphenhydrAMINE CAP 25 MG CAPSULE PO PRN (21:20)
[2018-08-01 05:40] LABS: Basophils % 0.4 % (0.0-0.8); Eosinophils # 0.5 10*3/uL (0.0-0.87); Eosinophils % 5.5 % (0.00-10.9); Hematocrit 35.6 VOL% (42.0-52.0); Hemoglobin 10.9 GM/DL (14.0-18.0); Immature Granulocytes % 0.5 %; Immature Granulocytes Absolute 0.04 #; Lymphocytes # 1.1 10*3/uL (1.4-4.0); Lymphocytes % 13.1 % (21.2-54.2); Mean Corpuscular HGB Conc 30.6 GM/DL (32-36); Mean Corpuscular Hemoglobin 27 PG (27-34); Mean Platelet Volume 11.1 FL (9.6-12.0); Monocytes # 0.7 10*3/uL (0.11-0.8); Monocytes % 8.5 % (1.7-12.7); Neutrophils # 5.9 10*3/uL (1.4-7.4); Platelet Count 132 T/CUMM (130-400); Red Blood Count 4.09 MC/CUMM (3.8-5.5); Red Cell Distribution Width 14.6 % (9.3-17.3); White Blood Count 8.2 T/CUMM (4-12)
[2018-08-01 06:13] LABS: Calcium 8.5 MG/DL (8.5-10.1); Free T4 (Free Thyroxine) 1.14 NG/DL (0.76-1.46); Osmolality,Calculated 291.3 MOS/KG (273-304); Potassium 3.6 MMOL/L (3.5-5.1)
[2018-08-01] MEDS: LEVOTHYROXINE 125 MCG TABLET PO SCH (07:22)
[2018-08-01] MEDS: POLYETHYLENE GLYCOL POWDER 17 GM PACK PO SCH (09:26)
[2018-08-01] MEDS: CITALOPRAM 20 MG TABLET PO SCH (09:27)
[2018-08-01] MEDS: SODIUM BICARBONATE 650 MG TABLET PO SCH (09:27)
[2018-08-01] MEDS: APIXABAN 5 MG TABLET PO SCH ×2 (09:27→21:30)
[2018-08-01] MEDS: PANTOPRAZOLE 40 MG TABLET PO SCH ×2 (09:27→21:30)
[2018-08-01] MEDS: ATORVASTATIN 40 MG TABLET PO SCH (09:27)
[2018-08-01] MEDS: CARVEDILOL 12.5 MG TABLET PO SCH ×2 (09:27→21:30)
[2018-08-01] MEDS: TAMSULOSIN 0.4 MG CAPSULE PO SCH ×2 (09:28→21:30)
[2018-08-01] MEDS: FEBUXOSTAT 80 MG TABLET PO SCH (09:28)
[2018-08-01] MEDS: INSULIN LISPRO PROTAMINE/LISPRO 75/25 100 UNIT/ML SUBCUT SCH ×2 (09:29→21:30)
[2018-08-01] MEDS: INSULIN LISPRO 100 UNIT/ML SUBCUT SCH ×4 (09:30→21:29)
[2018-08-01] MEDS: BUMETANIDE 1 MG/4 ML VIAL IV SCH (09:34)
[2018-08-01] MEDS: MAGNESIUM CHLORIDE 64 MG TABLET PO SCH ×2 (09:44→21:30)
[2018-08-01] MEDS: BUMETANIDE 1 MG TABLET PO SCH (16:24)
[2018-08-01] MEDS: COLLAGENASE OINT 30 GM TUBE TOP SCH (16:47)
[2018-08-02] MEDS: LEVOTHYROXINE 125 MCG TABLET PO SCH (06:56)
[2018-08-02] MEDS: INSULIN LISPRO 100 UNIT/ML SUBCUT SCH ×4 (07:39→21:59)
[2018-08-02] MEDS: BUMETANIDE 1 MG TABLET PO SCH ×2 (08:13→16:06)
[2018-08-02] MEDS: TAMSULOSIN 0.4 MG CAPSULE PO SCH ×2 (08:14→22:00)
[2018-08-02] MEDS: CARVEDILOL 12.5 MG TABLET PO SCH ×2 (08:14→22:00)
[2018-08-02] MEDS: SODIUM BICARBONATE 650 MG TABLET PO SCH (08:14)
[2018-08-02] MEDS: MAGNESIUM CHLORIDE 64 MG TABLET PO SCH ×2 (08:14→22:00)
[2018-08-02] MEDS: ASPIRIN CHEW 81 MG TABLET PO SCH (08:14)
[2018-08-02] MEDS: POLYETHYLENE GLYCOL POWDER 17 GM PACK PO SCH (08:15)
[2018-08-02] MEDS: ATORVASTATIN 40 MG TABLET PO SCH (08:15)
[2018-08-02] MEDS: FEBUXOSTAT 80 MG TABLET PO SCH (08:15)
[2018-08-02] MEDS: APIXABAN 5 MG TABLET PO SCH ×2 (08:15→22:00)
[2018-08-02] MEDS: PANTOPRAZOLE 40 MG TABLET PO SCH ×2 (08:15→22:00)
[2018-08-02] MEDS: CITALOPRAM 20 MG TABLET PO SCH (08:15)
[2018-08-02] MEDS: CHOLECALCIFEROL 1,000 UNIT TABLET PO SCH (08:16)
[2018-08-02] MEDS: INSULIN LISPRO PROTAMINE/LISPRO 75/25 100 UNIT/ML SUBCUT SCH ×2 (08:27→21:59)
[2018-08-02] MEDS: COLLAGENASE OINT 30 GM TUBE TOP SCH (10:15)
[2018-08-02] MEDS: POTASSIUM CHLORIDE 20 MEQ TABLET PO SCH (12:27)
[2018-08-02] MEDS ORDERED: metOLazone 5 MG TABLET PO ONE (17:44)
[2018-08-02] MEDS ORDERED: ERGOCALCIFEROL 50,000 UNIT CAPSULE PO SCH (21:00)
[2018-08-03 05:33] LABS: Calcium 8.6 MG/DL (8.5-10.1); Osmolality,Calculated 285.3 MOS/KG (273-304); Potassium 3.1 MMOL/L (3.5-5.1)
[2018-08-03] MEDS: LEVOTHYROXINE 125 MCG TABLET PO SCH (07:12)
[2018-08-03] MEDS: INSULIN LISPRO 100 UNIT/ML SUBCUT SCH ×4 (09:17→20:58)
[2018-08-03] MEDS: CHOLECALCIFEROL 1,000 UNIT TABLET PO SCH (09:19)
[2018-08-03] MEDS: POLYETHYLENE GLYCOL POWDER 17 GM PACK PO SCH ×2 (09:19→09:26)
[2018-08-03] MEDS: SODIUM BICARBONATE 650 MG TABLET PO SCH (09:19)
[2018-08-03] MEDS: FEBUXOSTAT 80 MG TABLET PO SCH (09:20)
[2018-08-03] MEDS: MAGNESIUM CHLORIDE 64 MG TABLET PO SCH ×2 (09:20→20:58)
[2018-08-03] MEDS: CARVEDILOL 12.5 MG TABLET PO SCH (09:20)
[2018-08-03] MEDS: TAMSULOSIN 0.4 MG CAPSULE PO SCH ×2 (09:20→20:59)
[2018-08-03] MEDS: BUMETANIDE 1 MG TABLET PO SCH ×2 (09:20→15:54)
[2018-08-03] MEDS: PANTOPRAZOLE 40 MG TABLET PO SCH ×2 (09:20→20:58)
[2018-08-03] MEDS: CITALOPRAM 20 MG TABLET PO SCH (09:20)
[2018-08-03] MEDS: POTASSIUM CHLORIDE 20 MEQ TABLET PO SCH (09:21)
[2018-08-03] MEDS: COLLAGENASE OINT 30 GM TUBE TOP SCH (09:21)
[2018-08-03] MEDS: ATORVASTATIN 40 MG TABLET PO SCH (09:21)
[2018-08-03] MEDS: APIXABAN 5 MG TABLET PO SCH ×2 (09:21→20:58)
[2018-08-03] MEDS: INSULIN LISPRO PROTAMINE/LISPRO 75/25 100 UNIT/ML SUBCUT SCH ×2 (09:21→20:59)
[2018-08-03] MEDS ORDERED: POTASSIUM CHLORIDE 20 MEQ TABLET PO ONE (20:01)
[2018-08-03] MEDS: CARVEDILOL 3.125 MG TABLET PO SCH (20:58)
[2018-08-04] MEDS: diphenhydrAMINE CAP 25 MG CAPSULE PO PRN ×2 (01:36→14:28)
[2018-08-04] MEDS: LEVOTHYROXINE 125 MCG TABLET PO SCH (05:55)
[2018-08-04] MEDS: INSULIN LISPRO 100 UNIT/ML SUBCUT SCH ×3 (08:16→15:58)
[2018-08-04] MEDS: INSULIN LISPRO PROTAMINE/LISPRO 75/25 100 UNIT/ML SUBCUT SCH (10:12)
[2018-08-04] MEDS: POTASSIUM CHLORIDE 20 MEQ TABLET PO SCH (10:13)
[2018-08-04] MEDS: CITALOPRAM 20 MG TABLET PO SCH (10:13)
[2018-08-04] MEDS: CARVEDILOL 3.125 MG TABLET PO SCH ×2 (10:13→16:55)
[2018-08-04] MEDS: CHOLECALCIFEROL 1,000 UNIT TABLET PO SCH (10:13)
[2018-08-04] MEDS: SODIUM BICARBONATE 650 MG TABLET PO SCH (10:13)
[2018-08-04] MEDS: ASPIRIN CHEW 81 MG TABLET PO SCH (10:13)
[2018-08-04] MEDS: BUMETANIDE 1 MG TABLET PO SCH ×2 (10:13→15:15)
[2018-08-04] MEDS: ATORVASTATIN 40 MG TABLET PO SCH (10:14)
[2018-08-04] MEDS: MAGNESIUM CHLORIDE 64 MG TABLET PO SCH ×2 (10:14→21:24)
[2018-08-04] MEDS: FEBUXOSTAT 80 MG TABLET PO SCH (10:14)
[2018-08-04] MEDS: TAMSULOSIN 0.4 MG CAPSULE PO SCH ×2 (10:14→21:23)
[2018-08-04] MEDS: LISINOPRIL 2.5 MG TABLET PO SCH (10:14)
[2018-08-04] MEDS: APIXABAN 5 MG TABLET PO SCH ×2 (10:14→21:24)
[2018-08-04] MEDS: PANTOPRAZOLE 40 MG TABLET PO SCH ×2 (10:14→21:24)
[2018-08-04] MEDS: POLYETHYLENE GLYCOL POWDER 17 GM PACK PO SCH (10:15)
[2018-08-04] MEDS: COLLAGENASE OINT 30 GM TUBE TOP SCH (10:15)
[2018-08-05] MEDS: diphenhydrAMINE CAP 25 MG CAPSULE PO PRN ×2 (01:39→23:05)
[2018-08-05] MEDS: INSULIN LISPRO 100 UNIT/ML SUBCUT SCH ×5 (02:56→20:09)
[2018-08-05] MEDS: INSULIN LISPRO PROTAMINE/LISPRO 75/25 100 UNIT/ML SUBCUT SCH ×3 (02:56→20:10)
[2018-08-05] MEDS: LEVOTHYROXINE 125 MCG TABLET PO SCH (06:31)
[2018-08-05] MEDS: CHOLECALCIFEROL 1,000 UNIT TABLET PO SCH (09:11)
[2018-08-05] MEDS: CITALOPRAM 20 MG TABLET PO SCH (09:12)
[2018-08-05] MEDS: POTASSIUM CHLORIDE 20 MEQ TABLET PO SCH ×2 (09:12→20:10)
[2018-08-05] MEDS: CARVEDILOL 3.125 MG TABLET PO SCH ×2 (09:12→17:00)
[2018-08-05] MEDS: BUMETANIDE 1 MG TABLET PO SCH ×2 (09:12→16:59)
[2018-08-05] MEDS: TAMSULOSIN 0.4 MG CAPSULE PO SCH ×2 (09:12→20:09)
[2018-08-05] MEDS: SODIUM BICARBONATE 650 MG TABLET PO SCH (09:12)
[2018-08-05] MEDS: PANTOPRAZOLE 40 MG TABLET PO SCH ×2 (09:12→20:09)
[2018-08-05] MEDS: LISINOPRIL 2.5 MG TABLET PO SCH (09:13)
[2018-08-05] MEDS: POLYETHYLENE GLYCOL POWDER 17 GM PACK PO SCH (09:13)
[2018-08-05] MEDS: FEBUXOSTAT 80 MG TABLET PO SCH (09:13)
[2018-08-05] MEDS: ATORVASTATIN 40 MG TABLET PO SCH (09:13)
[2018-08-05] MEDS: MAGNESIUM CHLORIDE 64 MG TABLET PO SCH ×2 (09:13→20:09)
[2018-08-05] MEDS: COLLAGENASE OINT 30 GM TUBE TOP SCH (09:13)
[2018-08-05] MEDS: APIXABAN 5 MG TABLET PO SCH ×2 (09:13→20:09)
[2018-08-05 15:47] LABS: Calcium 8.5 MG/DL (8.5-10.1); Osmolality,Calculated 285.7 MOS/KG (273-304); Potassium 3.2 MMOL/L (3.5-5.1)
[2018-08-06 04:31] LABS: Basophils # 0.1 10*3/uL (0.0-0.2); Basophils % 0.6 % (0.0-0.8); Eosinophils # 0.5 10*3/uL (0.0-0.87); Eosinophils % 5.4 % (0.00-10.9); Hemoglobin 10.7 GM/DL (14.0-18.0); Immature Granulocytes % 0.4 %; Immature Granulocytes Absolute 0.04 #; Lymphocytes # 1.4 10*3/uL (1.4-4.0); Lymphocytes % 15.8 % (21.2-54.2); Mean Corpuscular HGB Conc 30.6 GM/DL (32-36); Mean Corpuscular Hemoglobin 26 PG (27-34); Mean Corpuscular Volume 85.8 FL (87-102); Mean Platelet Volume 11.7 FL (9.6-12.0); Monocytes # 0.7 10*3/uL (0.11-0.8); Monocytes % 7.6 % (1.7-12.7); Neutrophils # 6.3 10*3/uL (1.4-7.4); Neutrophils % 70.2 % (38.7-73.9); Platelet Count 146 T/CUMM (130-400); Red Blood Count 4.08 MC/CUMM (3.8-5.5); Red Cell Distribution Width 14.9 % (9.3-17.3)
[2018-08-06 04:59] LABS: Calcium 8.3 MG/DL (8.5-10.1); Osmolality,Calculated 291.4 MOS/KG (273-304); Potassium 2.9 MMOL/L (3.5-5.1)
[2018-08-06] MEDS: LEVOTHYROXINE 125 MCG TABLET PO SCH (06:30)
[2018-08-06] MEDS: INSULIN LISPRO 100 UNIT/ML SUBCUT SCH ×4 (08:05→21:32)
[2018-08-06] MEDS: POLYETHYLENE GLYCOL POWDER 17 GM PACK PO SCH (10:32)
[2018-08-06] MEDS: INSULIN LISPRO PROTAMINE/LISPRO 75/25 100 UNIT/ML SUBCUT SCH ×2 (10:32→21:32)
[2018-08-06] MEDS: PANTOPRAZOLE 40 MG TABLET PO SCH ×2 (10:33→21:31)
[2018-08-06] MEDS: BUMETANIDE 1 MG TABLET PO SCH ×2 (10:33→17:36)
[2018-08-06] MEDS: CITALOPRAM 20 MG TABLET PO SCH (10:33)
[2018-08-06] MEDS: SODIUM BICARBONATE 650 MG TABLET PO SCH (10:33)
[2018-08-06] MEDS: MAGNESIUM CHLORIDE 64 MG TABLET PO SCH ×2 (10:33→21:31)
[2018-08-06] MEDS: FEBUXOSTAT 80 MG TABLET PO SCH (10:34)
[2018-08-06] MEDS: POTASSIUM CHLORIDE 20 MEQ TABLET PO SCH ×3 (10:34→21:32)
[2018-08-06] MEDS: TAMSULOSIN 0.4 MG CAPSULE PO SCH ×2 (10:34→21:32)
[2018-08-06] MEDS: ATORVASTATIN 40 MG TABLET PO SCH (10:34)
[2018-08-06] MEDS: ASPIRIN CHEW 81 MG TABLET PO SCH (10:34)
[2018-08-06] MEDS: COLLAGENASE OINT 30 GM TUBE TOP SCH (10:35)
[2018-08-06] MEDS: APIXABAN 5 MG TABLET PO SCH ×2 (10:35→21:32)
[2018-08-06] MEDS: CHOLECALCIFEROL 1,000 UNIT TABLET PO SCH (10:35)
[2018-08-06] MEDS: CARVEDILOL 3.125 MG TABLET PO SCH ×2 (10:35→17:37)
[2018-08-06] MEDS: BACITRACIN OINT 0.9 GM PACK TOP SCH (13:51)
[2018-08-07] MEDS: LEVOTHYROXINE 125 MCG TABLET PO SCH (07:18)
[2018-08-07] MEDS: CITALOPRAM 20 MG TABLET PO SCH (10:30)
[2018-08-07] MEDS: BUMETANIDE 1 MG TABLET PO SCH ×2 (10:30→16:34)
[2018-08-07] MEDS: SODIUM BICARBONATE 650 MG TABLET PO SCH (10:30)
[2018-08-07] MEDS: APIXABAN 5 MG TABLET PO SCH (10:30)
[2018-08-07] MEDS: MAGNESIUM CHLORIDE 64 MG TABLET PO SCH (10:30)
[2018-08-07] MEDS: FEBUXOSTAT 80 MG TABLET PO SCH (10:31)
[2018-08-07] MEDS: CHOLECALCIFEROL 1,000 UNIT TABLET PO SCH (10:31)
[2018-08-07] MEDS: BACITRACIN OINT 0.9 GM PACK TOP SCH (10:32)
[2018-08-07] MEDS: TAMSULOSIN 0.4 MG CAPSULE PO SCH (10:32)
[2018-08-07] MEDS: CARVEDILOL 3.125 MG TABLET PO SCH ×2 (10:32→18:28)
[2018-08-07] MEDS: PANTOPRAZOLE 40 MG TABLET PO SCH (10:32)
[2018-08-07] MEDS: ATORVASTATIN 40 MG TABLET PO SCH (10:32)
[2018-08-07] MEDS: POTASSIUM CHLORIDE 20 MEQ TABLET PO SCH ×2 (10:33→16:34)
[2018-08-07] MEDS: INSULIN LISPRO PROTAMINE/LISPRO 75/25 100 UNIT/ML SUBCUT SCH (10:34)
[2018-08-07] MEDS: POLYETHYLENE GLYCOL POWDER 17 GM PACK PO SCH (10:38)
[2018-08-07] MEDS: INSULIN LISPRO 100 UNIT/ML SUBCUT SCH ×3 (10:39→16:33)
[2018-08-07 12:13] VITALS: BP 109/68
[2018-08-07] MEDS: COLLAGENASE OINT 30 GM TUBE TOP SCH (16:09)
== END 2018-08-07 17:25 | disposition home health service (06) | DRG 291 ==
LOC: EDUNIT# → EDBD → N.ED 14:13 → N.EDINP 14:13 → SUATTDRO 17:49 → N.3E 18:15 → SUATTDRO 07-30 16:03
PROVIDERS: ADMIT Internal Medicine; ATTEND Internal Medicine Geriatric Medicine

== ENCOUNTER 2018-09-11 13:46 | Inpatient (IN) ==
[2018-09-11] MEDS ORDERED: BUMETANIDE 1 MG/4 ML VIAL IV STA (14:21)
[2018-09-11 14:33] LABS: Basophils % 0.7 % (0.0-0.8); Eosinophils # 0.2 10*3/uL (0.0-0.87); Eosinophils % 3.5 % (0.00-10.9); Hematocrit 35.8 VOL% (42.0-52.0); Hemoglobin 10.6 GM/DL (14.0-18.0); Immature Granulocytes % 0.3 %; Immature Granulocytes Absolute 0.02 #; Lymphocytes # 0.8 10*3/uL (1.4-4.0); Mean Corpuscular HGB Conc 29.6 GM/DL (32-36); Mean Corpuscular Hemoglobin 26 PG (27-34); Mean Corpuscular Volume 87.7 FL (87-102); Mean Platelet Volume 10.7 FL (9.6-12.0); Monocytes # 0.5 10*3/uL (0.11-0.8); Monocytes % 8.7 % (1.7-12.7); Neutrophils # 4.4 10*3/uL (1.4-7.4); Neutrophils % 72.8 % (38.7-73.9); Platelet Count 145 T/CUMM (130-400); Red Blood Count 4.08 MC/CUMM (3.8-5.5); Red Cell Distribution Width 15.2 % (9.3-17.3)
[2018-09-11 14:54] LABS: Albumin 2.9 G/DL (3.4-5.0); Bilirubin,Total 1.9 MG/DL (0.2-1.0); Calcium 8.9 MG/DL (8.5-10.1); Osmolality,Calculated 282.1 MOS/KG (273-304); Potassium 3.6 MMOL/L (3.5-5.1); Total Protein 6.4 G/DL (6.4-8.3)
[2018-09-11] MEDS ORDERED: ACETAMINOPHEN 325 MG TABLET PO PRN (16:47)
[2018-09-11] MEDS ORDERED: ONDANSETRON 4 MG/2 ML VIAL IV PRN (16:47)
[2018-09-11] MEDS ORDERED: MAGNESIUM SULF RIDER 4 GM in PREMIX 1 EACH IV PRN (16:47)
[2018-09-11] MEDS ORDERED: MAGNESIUM SULF RIDER 2 GM in PREMIX 1 EACH IV PRN (16:47)
[2018-09-11] MEDS ORDERED: GLUCAGON 1 MG VIAL IM PRN (16:59)
[2018-09-11] MEDS ORDERED: DEXTROSE 50% 25 GM/50 ML VIAL IV PRN (16:59)
[2018-09-11] MEDS: MAGNESIUM CHLORIDE 64 MG TABLET PO SCH (20:31)
[2018-09-11] MEDS: POTASSIUM CHLORIDE 20 MEQ PACK PO SCH (20:32)
[2018-09-11] MEDS: CARVEDILOL 3.125 MG TABLET PO SCH (20:32)
[2018-09-11] MEDS: INSULIN REGULAR 100 UNIT/ML SUBCUT SCH (20:32)
[2018-09-11] MEDS: TAMSULOSIN 0.4 MG CAPSULE PO SCH (20:32)
[2018-09-11] MEDS: APIXABAN 5 MG TABLET PO SCH (20:32)
[2018-09-11] MEDS: PANTOPRAZOLE 40 MG TABLET PO SCH (20:32)
[2018-09-12 05:09] LABS: Basophils % 0.8 % (0.0-0.8); Eosinophils # 0.2 10*3/uL (0.0-0.87); Hematocrit 35.4 VOL% (42.0-52.0); Hemoglobin 10.5 GM/DL (14.0-18.0); Immature Granulocytes % 0.6 %; Immature Granulocytes Absolute 0.03 #; Lymphocytes # 0.9 10*3/uL (1.4-4.0); Lymphocytes % 17.6 % (21.2-54.2); Mean Corpuscular HGB Conc 29.7 GM/DL (32-36); Mean Corpuscular Hemoglobin 26 PG (27-34); Mean Corpuscular Volume 88.7 FL (87-102); Mean Platelet Volume 11.2 FL (9.6-12.0); Monocytes # 0.4 10*3/uL (0.11-0.8); Monocytes % 7.1 % (1.7-12.7); Neutrophils # 3.8 10*3/uL (1.4-7.4); Neutrophils % 70.9 % (38.7-73.9); Platelet Count 138 T/CUMM (130-400); Red Blood Count 3.99 MC/CUMM (3.8-5.5); Red Cell Distribution Width 14.9 % (9.3-17.3); White Blood Count 5.3 T/CUMM (4-12)
[2018-09-12 05:20] LABS: Hypochromasia 1+; Ovalocytes Slight; Platelet Estimate Adequate
[2018-09-12 05:29] LABS: Albumin 2.9 G/DL (3.4-5.0); Bilirubin,Total 2.1 MG/DL (0.2-1.0); Osmolality,Calculated 290.8 MOS/KG (273-304); Potassium 3.9 MMOL/L (3.5-5.1); Total Protein 6.4 G/DL (6.4-8.3)
[2018-09-12] MEDS: LEVOTHYROXINE 112 MCG TABLET PO SCH (06:22)
[2018-09-12] MEDS ORDERED: BUMETANIDE 1 MG/4 ML VIAL IV SCH (08:00)
[2018-09-12] MEDS: INSULIN REGULAR 100 UNIT/ML SUBCUT SCH ×4 (08:23→22:13)
[2018-09-12] MEDS: FEBUXOSTAT 80 MG TABLET PO SCH (08:23)
[2018-09-12] MEDS: CHOLECALCIFEROL 1,000 UNIT TABLET PO SCH (08:23)
[2018-09-12] MEDS: CITALOPRAM 20 MG TABLET PO SCH (08:24)
[2018-09-12] MEDS: MAGNESIUM CHLORIDE 64 MG TABLET PO SCH ×2 (08:24→22:12)
[2018-09-12] MEDS: POTASSIUM CHLORIDE 20 MEQ PACK PO SCH ×3 (08:24→22:13)
[2018-09-12] MEDS: APIXABAN 5 MG TABLET PO SCH ×2 (08:24→22:12)
[2018-09-12] MEDS: PANTOPRAZOLE 40 MG TABLET PO SCH ×2 (08:24→22:13)
[2018-09-12] MEDS: POLYETHYLENE GLYCOL POWDER 17 GM PACK PO SCH (08:24)
[2018-09-12] MEDS: TAMSULOSIN 0.4 MG CAPSULE PO SCH ×2 (08:24→22:12)
[2018-09-12] MEDS: SODIUM BICARBONATE 650 MG TABLET PO SCH (08:24)
[2018-09-12] MEDS: CARVEDILOL 3.125 MG TABLET PO SCH ×2 (08:24→16:31)
[2018-09-12] MEDS: BUMETANIDE 1 MG/4 ML VIAL IV SCH ×2 (08:25→16:30)
[2018-09-12] MEDS: SKIN HEALING OINT (AQUAPHOR) 50 GM TUBE TOP SCH (12:26)
[2018-09-12] MEDS ORDERED: TUBERCULIN SKIN TEST 0.1 ML SYRINGE INTRADERM ONE (17:13)
[2018-09-12] MEDS: CLOTRIMAZOLE 1% CREAM 15 GM TUBE TOP SCH (22:11)
[2018-09-13 06:03] LABS: Calcium 8.9 MG/DL (8.5-10.1); Osmolality,Calculated 286.3 MOS/KG (273-304); Potassium 3.9 MMOL/L (3.5-5.1)
[2018-09-13 06:36] LABS: Basophils # 0.1 10*3/uL (0.0-0.2); Basophils % 0.7 % (0.0-0.8); Eosinophils # 0.2 10*3/uL (0.0-0.87); Eosinophils % 3.4 % (0.00-10.9); Hematocrit 36.1 VOL% (42.0-52.0); Hemoglobin 10.7 GM/DL (14.0-18.0); Immature Granulocytes % 1.2 %; Immature Granulocytes Absolute 0.08 #; Lymphocytes % 15.1 % (21.2-54.2); Mean Corpuscular HGB Conc 29.6 GM/DL (32-36); Mean Corpuscular Hemoglobin 26 PG (27-34); Mean Corpuscular Volume 87.6 FL (87-102); Monocytes # 0.6 10*3/uL (0.11-0.8); Monocytes % 9.4 % (1.7-12.7); Neutrophils # 4.7 10*3/uL (1.4-7.4); Neutrophils % 70.2 % (38.7-73.9); Platelet Count 144 T/CUMM (130-400); Red Blood Count 4.12 MC/CUMM (3.8-5.5); Red Cell Distribution Width 14.7 % (9.3-17.3); White Blood Count 6.7 T/CUMM (4-12)
[2018-09-13] MEDS: LEVOTHYROXINE 112 MCG TABLET PO SCH (07:15)
[2018-09-13] MEDS: CITALOPRAM 20 MG TABLET PO SCH (09:13)
[2018-09-13] MEDS: CHOLECALCIFEROL 1,000 UNIT TABLET PO SCH (09:13)
[2018-09-13] MEDS: SODIUM BICARBONATE 650 MG TABLET PO SCH (09:13)
[2018-09-13] MEDS: FEBUXOSTAT 80 MG TABLET PO SCH (09:14)
[2018-09-13] MEDS: PANTOPRAZOLE 40 MG TABLET PO SCH ×2 (09:14→22:27)
[2018-09-13] MEDS: POTASSIUM CHLORIDE 20 MEQ PACK PO SCH (09:14)
[2018-09-13] MEDS: CARVEDILOL 3.125 MG TABLET PO SCH ×2 (09:14→17:12)
[2018-09-13] MEDS: ASPIRIN CHEW 81 MG TABLET PO SCH (09:14)
[2018-09-13] MEDS: APIXABAN 5 MG TABLET PO SCH ×2 (09:14→22:26)
[2018-09-13] MEDS: TAMSULOSIN 0.4 MG CAPSULE PO SCH ×2 (09:14→22:26)
[2018-09-13] MEDS: MAGNESIUM CHLORIDE 64 MG TABLET PO SCH ×2 (09:14→22:26)
[2018-09-13] MEDS: BUMETANIDE 1 MG/4 ML VIAL IV SCH ×2 (09:15→17:13)
[2018-09-13] MEDS: SKIN HEALING OINT (AQUAPHOR) 50 GM TUBE TOP SCH (09:15)
[2018-09-13] MEDS: INSULIN REGULAR 100 UNIT/ML SUBCUT SCH ×4 (09:15→22:27)
[2018-09-13] MEDS: CLOTRIMAZOLE 1% CREAM 15 GM TUBE TOP SCH ×2 (09:16→22:33)
[2018-09-13] MEDS: POLYETHYLENE GLYCOL POWDER 17 GM PACK PO SCH (09:16)
[2018-09-13] MEDS: POTASSIUM CHLORIDE 20 MEQ TABLET PO SCH ×2 (17:12→22:27)
[2018-09-14 04:27] LABS: Basophils % 0.4 % (0.0-0.8); Eosinophils # 0.4 10*3/uL (0.0-0.87); Hematocrit 35.1 VOL% (42.0-52.0); Hemoglobin 10.4 GM/DL (14.0-18.0); Immature Granulocytes % 0.4 %; Immature Granulocytes Absolute 0.03 #; Lymphocytes % 12.5 % (21.2-54.2); Mean Corpuscular HGB Conc 29.6 GM/DL (32-36); Mean Corpuscular Hemoglobin 25 PG (27-34); Mean Corpuscular Volume 85.8 FL (87-102); Mean Platelet Volume 11.1 FL (9.6-12.0); Monocytes # 0.7 10*3/uL (0.11-0.8); Monocytes % 8.7 % (1.7-12.7); Neutrophils # 5.6 10*3/uL (1.4-7.4); Platelet Count 151 T/CUMM (130-400); Red Blood Count 4.09 MC/CUMM (3.8-5.5); Red Cell Distribution Width 14.8 % (9.3-17.3); White Blood Count 7.6 T/CUMM (4-12)
[2018-09-14 05:06] LABS: Calcium 8.4 MG/DL (8.5-10.1); Osmolality,Calculated 288.1 MOS/KG (273-304); Potassium 3.6 MMOL/L (3.5-5.1)
[2018-09-14] MEDS: LEVOTHYROXINE 112 MCG TABLET PO SCH (07:30)
[2018-09-14] MEDS: BUMETANIDE 1 MG/4 ML VIAL IV SCH ×2 (10:05→17:25)
[2018-09-14] MEDS: SKIN HEALING OINT (AQUAPHOR) 50 GM TUBE TOP SCH (10:05)
[2018-09-14] MEDS: INSULIN REGULAR 100 UNIT/ML SUBCUT SCH ×4 (10:05→21:27)
[2018-09-14] MEDS: CITALOPRAM 20 MG TABLET PO SCH (10:06)
[2018-09-14] MEDS: CHOLECALCIFEROL 1,000 UNIT TABLET PO SCH (10:07)
[2018-09-14] MEDS: MAGNESIUM CHLORIDE 64 MG TABLET PO SCH ×2 (10:07→21:31)
[2018-09-14] MEDS: SODIUM BICARBONATE 650 MG TABLET PO SCH (10:07)
[2018-09-14] MEDS: POTASSIUM CHLORIDE 20 MEQ TABLET PO SCH ×3 (10:07→21:31)
[2018-09-14] MEDS: APIXABAN 5 MG TABLET PO SCH ×2 (10:08→21:31)
[2018-09-14] MEDS: CARVEDILOL 3.125 MG TABLET PO SCH ×2 (10:08→18:29)
[2018-09-14] MEDS: PANTOPRAZOLE 40 MG TABLET PO SCH ×2 (10:08→21:31)
[2018-09-14] MEDS: POLYETHYLENE GLYCOL POWDER 17 GM PACK PO SCH (10:08)
[2018-09-14] MEDS: FEBUXOSTAT 80 MG TABLET PO SCH (10:09)
[2018-09-14] MEDS: CLOTRIMAZOLE 1% CREAM 15 GM TUBE TOP SCH ×2 (10:09→22:24)
[2018-09-14] MEDS: TAMSULOSIN 0.4 MG CAPSULE PO SCH ×2 (10:13→21:31)
[2018-09-14] MEDS: INSULIN LISPRO PROTAMINE/LISPRO 75/25 100 UNIT/ML SUBCUT SCH (17:27)
[2018-09-15 06:07] LABS: Calcium 8.3 MG/DL (8.5-10.1); Osmolality,Calculated 283.5 MOS/KG (273-304); Potassium 3.7 MMOL/L (3.5-5.1)
[2018-09-15] MEDS: LEVOTHYROXINE 112 MCG TABLET PO SCH (06:26)
[2018-09-15] MEDS: SODIUM BICARBONATE 650 MG TABLET PO SCH (09:35)
[2018-09-15] MEDS: CITALOPRAM 20 MG TABLET PO SCH (09:35)
[2018-09-15] MEDS: MAGNESIUM CHLORIDE 64 MG TABLET PO SCH ×2 (09:36→21:43)
[2018-09-15] MEDS: ASPIRIN CHEW 81 MG TABLET PO SCH (09:36)
[2018-09-15] MEDS: CHOLECALCIFEROL 1,000 UNIT TABLET PO SCH (09:36)
[2018-09-15] MEDS: CLOTRIMAZOLE 1% CREAM 15 GM TUBE TOP SCH ×2 (09:36→21:49)
[2018-09-15] MEDS: FEBUXOSTAT 80 MG TABLET PO SCH (09:36)
[2018-09-15] MEDS: CARVEDILOL 3.125 MG TABLET PO SCH ×2 (09:37→17:03)
[2018-09-15] MEDS: TAMSULOSIN 0.4 MG CAPSULE PO SCH ×2 (09:37→21:43)
[2018-09-15] MEDS: APIXABAN 5 MG TABLET PO SCH ×2 (09:38→21:43)
[2018-09-15] MEDS: PANTOPRAZOLE 40 MG TABLET PO SCH ×2 (09:38→21:44)
[2018-09-15] MEDS: POLYETHYLENE GLYCOL POWDER 17 GM PACK PO SCH (09:38)
[2018-09-15] MEDS: INSULIN REGULAR 100 UNIT/ML SUBCUT SCH ×4 (09:43→21:44)
[2018-09-15] MEDS: INSULIN LISPRO PROTAMINE/LISPRO 75/25 100 UNIT/ML SUBCUT SCH ×2 (09:44→16:56)
[2018-09-15] MEDS: SKIN HEALING OINT (AQUAPHOR) 50 GM TUBE TOP SCH (09:45)
[2018-09-15] MEDS: BUMETANIDE 1 MG/4 ML VIAL IV SCH ×2 (09:45→16:57)
[2018-09-15] MEDS: POTASSIUM CHLORIDE 20 MEQ TABLET PO SCH ×3 (10:07→21:44)
[2018-09-16 06:05] LABS: Basophils % 0.4 % (0.0-0.8); Eosinophils # 0.4 10*3/uL (0.0-0.87); Eosinophils % 5.1 % (0.00-10.9); Hematocrit 36.2 VOL% (42.0-52.0); Hemoglobin 10.9 GM/DL (14.0-18.0); Immature Granulocytes % 0.6 %; Immature Granulocytes Absolute 0.05 #; Lymphocytes # 0.8 10*3/uL (1.4-4.0); Lymphocytes % 9.7 % (21.2-54.2); Mean Corpuscular HGB Conc 30.1 GM/DL (32-36); Mean Corpuscular Hemoglobin 26 PG (27-34); Mean Corpuscular Volume 86.8 FL (87-102); Mean Platelet Volume 10.6 FL (9.6-12.0); Monocytes # 0.6 10*3/uL (0.11-0.8); Monocytes % 6.9 % (1.7-12.7); Neutrophils # 6.3 10*3/uL (1.4-7.4); Neutrophils % 77.3 % (38.7-73.9); Platelet Count 145 T/CUMM (130-400); Red Blood Count 4.17 MC/CUMM (3.8-5.5); Red Cell Distribution Width 14.8 % (9.3-17.3); White Blood Count 8.1 T/CUMM (4-12)
[2018-09-16 06:17] LABS: Calcium 9.1 MG/DL (8.5-10.1); Osmolality,Calculated 278.7 MOS/KG (273-304); Potassium 3.5 MMOL/L (3.5-5.1)
[2018-09-16] MEDS: LEVOTHYROXINE 112 MCG TABLET PO SCH (06:27)
[2018-09-16] MEDS: INSULIN LISPRO PROTAMINE/LISPRO 75/25 100 UNIT/ML SUBCUT SCH ×2 (09:40→16:50)
[2018-09-16] MEDS: BUMETANIDE 1 MG/4 ML VIAL IV SCH ×2 (09:41→16:41)
[2018-09-16] MEDS: INSULIN REGULAR 100 UNIT/ML SUBCUT SCH ×4 (09:41→21:29)
[2018-09-16] MEDS: TAMSULOSIN 0.4 MG CAPSULE PO SCH ×2 (09:42→21:29)
[2018-09-16] MEDS: FEBUXOSTAT 80 MG TABLET PO SCH (09:42)
[2018-09-16] MEDS: CITALOPRAM 20 MG TABLET PO SCH (09:42)
[2018-09-16] MEDS: MAGNESIUM CHLORIDE 64 MG TABLET PO SCH ×2 (09:42→21:29)
[2018-09-16] MEDS: APIXABAN 5 MG TABLET PO SCH ×2 (09:42→21:29)
[2018-09-16] MEDS: CHOLECALCIFEROL 1,000 UNIT TABLET PO SCH (09:42)
[2018-09-16] MEDS: POLYETHYLENE GLYCOL POWDER 17 GM PACK PO SCH (09:43)
[2018-09-16] MEDS: SODIUM BICARBONATE 650 MG TABLET PO SCH (09:43)
[2018-09-16] MEDS: POTASSIUM CHLORIDE 20 MEQ TABLET PO SCH ×3 (09:43→21:29)
[2018-09-16] MEDS: CARVEDILOL 3.125 MG TABLET PO SCH ×2 (09:43→16:39)
[2018-09-16] MEDS: CLOTRIMAZOLE 1% CREAM 15 GM TUBE TOP SCH ×2 (09:43→21:29)
[2018-09-16] MEDS: PANTOPRAZOLE 40 MG TABLET PO SCH ×2 (09:44→21:29)
[2018-09-16] MEDS: SKIN HEALING OINT (AQUAPHOR) 50 GM TUBE TOP SCH (09:44)
[2018-09-17] MEDS: LEVOTHYROXINE 112 MCG TABLET PO SCH (06:21)
[2018-09-17] MEDS: INSULIN REGULAR 100 UNIT/ML SUBCUT SCH ×4 (08:28→21:19)
[2018-09-17] MEDS: TAMSULOSIN 0.4 MG CAPSULE PO SCH ×2 (10:51→21:08)
[2018-09-17] MEDS: SODIUM BICARBONATE 650 MG TABLET PO SCH (10:51)
[2018-09-17] MEDS: CARVEDILOL 3.125 MG TABLET PO SCH ×2 (10:51→17:22)
[2018-09-17] MEDS: CHOLECALCIFEROL 1,000 UNIT TABLET PO SCH (10:52)
[2018-09-17] MEDS: MAGNESIUM CHLORIDE 64 MG TABLET PO SCH ×2 (10:52→21:08)
[2018-09-17] MEDS: POTASSIUM CHLORIDE 20 MEQ TABLET PO SCH ×3 (10:52→21:08)
[2018-09-17] MEDS: CITALOPRAM 20 MG TABLET PO SCH (10:53)
[2018-09-17] MEDS: ASPIRIN CHEW 81 MG TABLET PO SCH (10:53)
[2018-09-17] MEDS: PANTOPRAZOLE 40 MG TABLET PO SCH ×2 (10:53→21:09)
[2018-09-17] MEDS: APIXABAN 5 MG TABLET PO SCH ×2 (10:53→21:08)
[2018-09-17] MEDS: BUMETANIDE 1 MG/4 ML VIAL IV SCH (10:53)
[2018-09-17] MEDS: INSULIN LISPRO PROTAMINE/LISPRO 75/25 100 UNIT/ML SUBCUT SCH ×2 (10:55→17:21)
[2018-09-17] MEDS: SKIN HEALING OINT (AQUAPHOR) 50 GM TUBE TOP SCH (10:56)
[2018-09-17] MEDS: FEBUXOSTAT 80 MG TABLET PO SCH (10:57)
[2018-09-17] MEDS: POLYETHYLENE GLYCOL POWDER 17 GM PACK PO SCH (10:57)
[2018-09-17] MEDS: CLOTRIMAZOLE 1% CREAM 15 GM TUBE TOP SCH ×2 (11:02→21:11)
[2018-09-17] MEDS ORDERED: TUBERCULIN SKIN TEST 0.1 ML SYRINGE INTRADERM ONE (14:49)
[2018-09-17] MEDS ORDERED: BUMETANIDE 1 MG/4 ML VIAL IV SCH (15:17)
[2018-09-17 16:26] LABS: Calcium 8.7 MG/DL (8.5-10.1); Osmolality,Calculated 287.5 MOS/KG (273-304); Potassium 3.9 MMOL/L (3.5-5.1)
[2018-09-17] MEDS: PIPERACILLIN/TAZOBACTAM 3,375 MG in SODIUM CHLORIDE 0.9% 100 ML IV SCH (17:14)
[2018-09-17] MEDS: BUMETANIDE IV SCH (21:21)
[2018-09-17] MEDS: SODIUM CHLORIDE 0.9% IV SCH (21:21)
[2018-09-18] MEDS: PIPERACILLIN/TAZOBACTAM 3,375 MG in SODIUM CHLORIDE 0.9% 100 ML IV SCH ×3 (02:29→15:18)
[2018-09-18 05:17] LABS: Basophils % 0.5 % (0.0-0.8); Eosinophils # 0.4 10*3/uL (0.0-0.87); Eosinophils % 5.7 % (0.00-10.9); Hematocrit 31.8 VOL% (42.0-52.0); Hemoglobin 9.6 GM/DL (14.0-18.0); Immature Granulocytes % 0.6 %; Immature Granulocytes Absolute 0.04 #; Lymphocytes # 0.8 10*3/uL (1.4-4.0); Lymphocytes % 13.2 % (21.2-54.2); Mean Corpuscular HGB Conc 30.2 GM/DL (32-36); Mean Corpuscular Hemoglobin 26 PG (27-34); Mean Corpuscular Volume 85.9 FL (87-102); Mean Platelet Volume 11.2 FL (9.6-12.0); Monocytes # 0.5 10*3/uL (0.11-0.8); Monocytes % 8.3 % (1.7-12.7); Neutrophils # 4.6 10*3/uL (1.4-7.4); Neutrophils % 71.7 % (38.7-73.9); Platelet Count 134 T/CUMM (130-400); Red Cell Distribution Width 14.6 % (9.3-17.3); White Blood Count 6.4 T/CUMM (4-12)
[2018-09-18 05:40] LABS: Calcium 8.5 MG/DL (8.5-10.1); Osmolality,Calculated 286.3 MOS/KG (273-304); Potassium 3.4 MMOL/L (3.5-5.1)
[2018-09-18 05:42] LABS: Calcium 8.5 MG/DL (8.5-10.1); Osmolality,Calculated 286.3 MOS/KG (273-304); Potassium 3.5 MMOL/L (3.5-5.1)
[2018-09-18] MEDS: LEVOTHYROXINE 112 MCG TABLET PO SCH (06:15)
[2018-09-18] MEDS: INSULIN LISPRO PROTAMINE/LISPRO 75/25 100 UNIT/ML SUBCUT SCH ×2 (08:57→16:06)
[2018-09-18] MEDS: CARVEDILOL 3.125 MG TABLET PO SCH ×2 (08:57→16:06)
[2018-09-18] MEDS: INSULIN REGULAR 100 UNIT/ML SUBCUT SCH ×4 (08:57→22:27)
[2018-09-18] MEDS: TAMSULOSIN 0.4 MG CAPSULE PO SCH ×2 (08:58→22:26)
[2018-09-18] MEDS: APIXABAN 5 MG TABLET PO SCH ×2 (08:58→22:27)
[2018-09-18] MEDS: SKIN HEALING OINT (AQUAPHOR) 50 GM TUBE TOP SCH (08:58)
[2018-09-18] MEDS: POLYETHYLENE GLYCOL POWDER 17 GM PACK PO SCH (08:58)
[2018-09-18] MEDS: POTASSIUM CHLORIDE 20 MEQ TABLET PO SCH ×3 (08:58→22:26)
[2018-09-18] MEDS: CITALOPRAM 20 MG TABLET PO SCH (08:58)
[2018-09-18] MEDS: CLOTRIMAZOLE 1% CREAM 15 GM TUBE TOP SCH ×2 (08:58→22:26)
[2018-09-18] MEDS: CHOLECALCIFEROL 1,000 UNIT TABLET PO SCH (08:59)
[2018-09-18] MEDS: FEBUXOSTAT 80 MG TABLET PO SCH (08:59)
[2018-09-18] MEDS: MAGNESIUM CHLORIDE 64 MG TABLET PO SCH ×2 (08:59→22:27)
[2018-09-18] MEDS: PANTOPRAZOLE 40 MG TABLET PO SCH ×2 (08:59→22:27)
[2018-09-18] MEDS: SODIUM BICARBONATE 650 MG TABLET PO SCH (08:59)
[2018-09-18] MEDS ORDERED: metOLazone 5 MG TABLET PO SCH (09:00)
[2018-09-18] MEDS: BUMETANIDE IV SCH ×2 (11:40→13:56)
[2018-09-18] MEDS: SODIUM CHLORIDE 0.9% IV SCH ×2 (11:40→13:56)
[2018-09-18] MEDS: VANCOMYCIN INJ 2,500 MG in SODIUM CHLORIDE 0.9% 500 ML IV SCH ×2 (22:30)
[2018-09-19] MEDS: PIPERACILLIN/TAZOBACTAM 3,375 MG in SODIUM CHLORIDE 0.9% 100 ML IV SCH ×3 (00:53→16:42)
[2018-09-19 05:47] LABS: Basophils % 0.7 % (0.0-0.8); Eosinophils # 0.5 10*3/uL (0.0-0.87); Eosinophils % 8.3 % (0.00-10.9); Hematocrit 33.8 VOL% (42.0-52.0); Hemoglobin 10.1 GM/DL (14.0-18.0); Immature Granulocytes % 0.5 %; Immature Granulocytes Absolute 0.03 #; Lymphocytes # 0.7 10*3/uL (1.4-4.0); Lymphocytes % 11.4 % (21.2-54.2); Mean Corpuscular HGB Conc 29.9 GM/DL (32-36); Mean Corpuscular Hemoglobin 26 PG (27-34); Mean Corpuscular Volume 87.3 FL (87-102); Mean Platelet Volume 11.1 FL (9.6-12.0); Monocytes # 0.5 10*3/uL (0.11-0.8); Monocytes % 8.5 % (1.7-12.7); Neutrophils # 4.3 10*3/uL (1.4-7.4); Neutrophils % 70.6 % (38.7-73.9); Platelet Count 142 T/CUMM (130-400); Red Blood Count 3.87 MC/CUMM (3.8-5.5); Red Cell Distribution Width 14.7 % (9.3-17.3); White Blood Count 6.1 T/CUMM (4-12)
[2018-09-19 06:05] LABS: Calcium 8.7 MG/DL (8.5-10.1); Osmolality,Calculated 285.3 MOS/KG (273-304); Potassium 3.1 MMOL/L (3.5-5.1)
[2018-09-19 06:06] LABS: Calcium 8.6 MG/DL (8.5-10.1); Potassium 3.1 MMOL/L (3.5-5.1)
[2018-09-19] MEDS: LEVOTHYROXINE 112 MCG TABLET PO SCH (06:13)
[2018-09-19] MEDS: BUMETANIDE IV SCH ×2 (07:36→09:33)
[2018-09-19] MEDS: SODIUM CHLORIDE 0.9% IV SCH ×2 (07:36→09:33)
[2018-09-19] MEDS: INSULIN LISPRO PROTAMINE/LISPRO 75/25 100 UNIT/ML SUBCUT SCH ×2 (08:38→16:43)
[2018-09-19] MEDS: INSULIN REGULAR 100 UNIT/ML SUBCUT SCH ×4 (08:39→21:17)
[2018-09-19] MEDS: SODIUM BICARBONATE 650 MG TABLET PO SCH (08:39)
[2018-09-19] MEDS: TAMSULOSIN 0.4 MG CAPSULE PO SCH ×2 (08:39→20:30)
[2018-09-19] MEDS: POLYETHYLENE GLYCOL POWDER 17 GM PACK PO SCH (08:39)
[2018-09-19] MEDS: APIXABAN 5 MG TABLET PO SCH ×2 (08:40→20:30)
[2018-09-19] MEDS: CITALOPRAM 20 MG TABLET PO SCH (08:40)
[2018-09-19] MEDS: CARVEDILOL 3.125 MG TABLET PO SCH ×2 (08:40→17:20)
[2018-09-19] MEDS: POTASSIUM CHLORIDE 20 MEQ TABLET PO SCH ×3 (08:40→20:31)
[2018-09-19] MEDS: FEBUXOSTAT 80 MG TABLET PO SCH (08:40)
[2018-09-19] MEDS: MAGNESIUM CHLORIDE 64 MG TABLET PO SCH ×2 (08:40→20:30)
[2018-09-19] MEDS: CHOLECALCIFEROL 1,000 UNIT TABLET PO SCH (08:41)
[2018-09-19] MEDS: ASPIRIN CHEW 81 MG TABLET PO SCH (08:41)
[2018-09-19] MEDS: SKIN HEALING OINT (AQUAPHOR) 50 GM TUBE TOP SCH (08:41)
[2018-09-19] MEDS: CLOTRIMAZOLE 1% CREAM 15 GM TUBE TOP SCH ×2 (08:41→20:32)
[2018-09-19] MEDS: PANTOPRAZOLE 40 MG TABLET PO SCH ×2 (08:41→20:31)
[2018-09-20] MEDS: VANCOMYCIN INJ 2,500 MG in SODIUM CHLORIDE 0.9% 500 ML IV SCH (00:24)
[2018-09-20] MEDS: PIPERACILLIN/TAZOBACTAM 3,375 MG in SODIUM CHLORIDE 0.9% 100 ML IV SCH ×2 (02:41→09:40)
[2018-09-20 04:59] LABS: Calcium 8.5 MG/DL (8.5-10.1); Osmolality,Calculated 281.4 MOS/KG (273-304); Potassium 3.3 MMOL/L (3.5-5.1)
[2018-09-20] MEDS: SODIUM CHLORIDE 0.9% IV SCH (05:52)
[2018-09-20] MEDS: BUMETANIDE IV SCH (05:52)
[2018-09-20] MEDS: LEVOTHYROXINE 112 MCG TABLET PO SCH (06:10)
[2018-09-20] MEDS: INSULIN REGULAR 100 UNIT/ML SUBCUT SCH ×2 (08:25→12:47)
[2018-09-20] MEDS: SODIUM BICARBONATE 650 MG TABLET PO SCH (09:38)
[2018-09-20] MEDS: INSULIN LISPRO PROTAMINE/LISPRO 75/25 100 UNIT/ML SUBCUT SCH (09:38)
[2018-09-20] MEDS: PANTOPRAZOLE 40 MG TABLET PO SCH (09:39)
[2018-09-20] MEDS: MAGNESIUM CHLORIDE 64 MG TABLET PO SCH (09:39)
[2018-09-20] MEDS: TAMSULOSIN 0.4 MG CAPSULE PO SCH (09:39)
[2018-09-20] MEDS: CHOLECALCIFEROL 1,000 UNIT TABLET PO SCH (09:39)
[2018-09-20] MEDS: APIXABAN 5 MG TABLET PO SCH (09:39)
[2018-09-20] MEDS: POTASSIUM CHLORIDE 20 MEQ TABLET PO SCH (09:39)
[2018-09-20] MEDS: CITALOPRAM 20 MG TABLET PO SCH (09:39)
[2018-09-20] MEDS: POLYETHYLENE GLYCOL POWDER 17 GM PACK PO SCH (09:40)
[2018-09-20] MEDS: CLOTRIMAZOLE 1% CREAM 15 GM TUBE TOP SCH (09:40)
[2018-09-20] MEDS: SKIN HEALING OINT (AQUAPHOR) 50 GM TUBE TOP SCH (09:40)
[2018-09-20] MEDS: CARVEDILOL 3.125 MG TABLET PO SCH (09:40)
[2018-09-20] MEDS: FEBUXOSTAT 80 MG TABLET PO SCH (09:46)
[2018-09-20 11:53] VITALS: BP 120/81
== END 2018-09-20 13:04 | DRG 291 ==
LOC: EDUNIT# → EDBD → N.ED 13:46 → SUATTDRO 16:47 → N.EDINP 16:47 → N.2E 17:31
PROVIDERS: ADMIT Internal Medicine; ATTEND Internal Medicine